=== PATIENT | male | born 1935 | race Two or more races ===

== ENCOUNTER 2020-02-26 20:23 | Inpatient (IN) | payer MEDICARE, MEDICAID ==
[~2020-02-26] VITALS: Ht 165.1 cm; Wt 83.9 kg
[2020-02-27] VITALS (15 sets, daily range): BP systolic 143–203; BP diastolic 57–95
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
[2020-02-27] MEDS ORDERED: ACETAMINOPHEN325 M1 ORAL (02:37)
[2020-02-27] MEDS ORDERED: ATORVASTATIN CA80 MG ORAL (02:37)
[2020-02-27] MEDS ORDERED: MONTELUKAST SOD10 MG ORAL (02:37)
[2020-02-27] MEDS ORDERED: METFORMIN HCL1000 M1 ORAL (02:37)
[2020-02-27] MEDS ORDERED: LYRICA75 M1 ORAL (02:37)
[2020-02-27] MEDS ORDERED: LEVOCETIRIZINE D5 MG ORAL (02:37)
[2020-02-27] MEDS ORDERED: VITAMIN D3-ALO1 EACH PO (02:37)
[2020-02-27] MEDS ORDERED: Jardiance PO (02:37)
[2020-02-27] MEDS ORDERED: NAPROXEN500 M2 ORAL (02:37)
[2020-02-27] MEDS ORDERED: VASCEPA1 GM PO (02:37)
[2020-02-27] MEDS ORDERED: CARVEDILOL12.5 MG ORAL (02:37)
[2020-02-27] MEDS ORDERED: FLOMAX0.4 MG ORAL (02:37)
--- NOTE | 2020-02-27 02:46 | NUR ---
NURSE NOTES: Called Dr. Bojorquez for admission orders. Awaiting callback.
--- NOTE | 2020-02-27 04:07 | NUR ---
NURSE NOTES: Called Dr. Bojorquez again for admission orders. Awaiting callback.
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
--- NOTE | 2020-02-27 06:36 | NUR ---
NURSE NOTES: Received admission orders from Dr. Bojorquez regarding keeping patient NPO for surgery later today after light breakfast. Noted and carried out.
[2020-02-27] MEDS ORDERED: Morphine Sulfate 2mg/ml Inj(IV/IM USE ONLY) IVP PRN ×9 (06:45→20:30)
[2020-02-27] MEDS ORDERED: HYDROcodone/Acetamin 5/325 tab ORAL PRN ×5 (06:45→18:45)
--- NOTE | 2020-02-27 07:44 | NUR ---
HAND-OFF: Report given to SWAPNIL Costa. Patient is awake lying semi-rahman's; resting comfortaby. Endorsed to oncoming shift RN regarding patient's possible surgical procedure later today; verbalized understanding. Per Dr. Bojorquez, Dr. Padilla will be putting in surgical procedure orders. In stable condition.
--- NOTE | 2020-02-27 07:54 | NUR ---
NURSE NOTES: Received pt from Miri/Ivelisse RN. Pt is on RA, no SOB or acute respiratory distress noted. pt has intact iv access LAC 18g and LH 22g SL. pt is on continues heart monitoring. no complain of pain at this moment. all needs attended, bed is locked and is in the lowest position, call light within easy reach. will continue to monitor.
--- NOTE | 2020-02-27 08:34 | NUR ---
RADIOLOGY DEPT., CHEST X-RAY DONE BY LILLIAN ERICKSON.RADHA
--- NOTE | 2020-02-27 08:45 | NUR ---
NURSE NOTES: Dr Bojorquez is aware about HTN 169/70 HR 75 and pt has surgery in the afternoon, ordered given metoprolol as order and gave order clonidine, noted and carried out. will continue to monitor.
[2020-02-27] MEDS ORDERED: Lyrica 75mg cap ORAL SCH ×2 (09:00→18:00)
[2020-02-27] MEDS ORDERED: Tamsulosin 0.4mg cap ORAL SCH ×2 (09:00→21:00)
[2020-02-27] MEDS ORDERED: Carvedilol 12.5mg tab ORAL SCH (09:00)
--- NOTE | 2020-02-27 09:20 | NUR ---
PT NOTE Received MD order for PT evaluation after surgery. Patient scheduled for surgery later today, will follow.
[2020-02-27 09:28] LABS: BASOPHILS % (AUTO) 0.4 % (0.0-2.0); EOSINOPHILS % (AUTO) 1.2 % (0.0-3.0); HEMATOCRIT 30.2 % (42.0-52.0); HEMOGLOBIN 9.8 G/DL (14.2-18.0); LYMPHOCYTES % (AUTO) 8.8 % (20.0-45.0); MEAN CORPUSCULAR VOLUME 95 FL (80-99); MONOCYTES % (AUTO) 9.8 % (1.0-10.0); NEUTROPHILS % (AUTO) 79.9 % (45.0-75.0); PLATELET COUNT 271 K/UL (150-450); RED BLOOD COUNT 3.17 M/UL (4.70-6.10); RED CELL DISTRIBUTION WIDTH 13.2 % (11.6-14.8); WHITE BLOOD COUNT 16.4 K/UL (4.8-10.8)
--- NOTE | 2020-02-27 09:28 | Diagnostic Imaging Report ---
Indication: Cough Technique: One view of the chest Comparison: none Findings: Heart is enlarged. Lungs and pleural spaces are clear. There is calcified granuloma in the right upper lobe. Impression: No acute process Evidence of old granulomatous disease
[2020-02-27 09:31] LABS: INR 1.1 (0.9-1.1)
[2020-02-27 09:39] LABS: ANION GAP 14 mmol/L (5-15); BLOOD UREA NITROGEN 48 mg/dL (7-18); CALCIUM 8.5 MG/DL (8.5-10.1); CARBON DIOXIDE 22 MMOL/L (21-32); CHLORIDE 105 MMOL/L (98-107); CREATININE 2.3 MG/DL (0.55-1.30); POTASSIUM 4.3 MMOL/L (3.5-5.1); SODIUM 141 MMOL/L (136-145)
[2020-02-27 09:48] LABS: ALANINE AMINOTRANSFERASE 17 U/L (12-78); ALBUMIN 2.8 G/DL (3.4-5.0); ALBUMIN/GLOBULIN RATIO 0.7 (1.0-2.7); ALKALINE PHOSPHATASE 79 U/L (46-116); ASPARTATE AMINO TRANSFERASE 21 U/L (15-37); PHOSPHORUS 3.7 MG/DL (2.5-4.9)
[2020-02-27] MEDS ORDERED: Vancomycin 1 GM in D5W 275 ML IVPB SCH ×2 (10:00→21:00)
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
--- NOTE | 2020-02-27 10:39 | NUR ---
NURSE NOTES: Dr Ngo visited pt and is aware about WBC 16.4, HB 9.8, CREA 2.3 BS 229, MG 2.5 and other lab results and V/S, no new order to RNMD will F/U. will continue to monitor.
--- NOTE | 2020-02-27 10:49 | NUR ---
NURSE NOTES: RN tried to do ECG for pt but ECG machine isn't working, CN Willam is aware and CN tried but couldn't, CN will F/U to fix machine. will continue to monitor.
--- NOTE | 2020-02-27 11:23 | NUR ---
NURSE NOTES: Urin sample sent to lab, waiting for result.
[2020-02-27] MEDS: NovoLOG Insulin Flexpen SUBQ SCH ×3 (11:30→20:40)
[2020-02-27 11:54] LABS: % IRON SATURATION 9 % (15-50); FERRITIN 236 NG/ML (8-388); IRON 14 ug/dL (50-175); TOTAL IRON BINDING CAPACITY 162 ug/dL (250-450)
[2020-02-27] MEDS ORDERED: ceFAZolin sod 1 GM in D5W 55 ML IVPB SCH (12:00)
[2020-02-27 12:05] LABS: CHOLESTEROL 101 MG/DL (< 200); HDL CHOLESTEROL 25 MG/DL (40-60); TRIGLYCERIDES 202 MG/DL (30-150)
[2020-02-27 12:06] LABS: APPEARANCE,URINE CLEAR; BILIRUBIN, URINE NEGATIVE (NEGATIVE); COLOR,URINE PALE YELLOW; GLUCOSE, URINE (UA) 4+ (NEGATIVE); KETONES,URINE 2+ (NEGATIVE); LEUKOCYTE ESTERASE ,URINE NEGATIVE (NEGATIVE); NITRITE,URINE NEGATIVE (NEGATIVE); PH,URINE 5 (4.5-8.0); PROTEIN,URINE 2+ (NEGATIVE); UROBILINOGEN,URINE NORMAL MG/DL (0.0-1.0)
--- NOTE | 2020-02-27 12:20 | NUR ---
CASE MANAGEMENT:REVIEW 84 YR OLD MALE BIBA FROM [facility] ER SI: POSTOP KNEE PAIN. DM. BPH 99.2 75 20 146/57 97% ON RA WBC+16.4 H/H-9.8/30.2 BUN+48 CR+2.3 GLUCOSE+229 IS: IV VANCOMYCIN X1 IV ANCEF Q12HRS COREG PO Q12 LYRICA PO BID FLOMAX PO QHS SINGULAR PO QD HEPARIN SQ Q8HRS : TELEMETRY STATUS
--- NOTE | 2020-02-27 12:28 | NUR ---
NURSE NOTES: RN called Dr Padilla office 0900 and left massage regarding pt is NPO and asked the time for surgery, no called back yet, GUERA Quarles is aware. will continue to monitor.
--- NOTE | 2020-02-27 12:31 | NUR ---
MD NOTIFICATION MESSAGES LEFT FOR DR SALES, DR SERRANO AND DR ORTIZ REGARDING HOSPITALIZATION
[2020-02-27 12:33] LABS: CREATINE KINASE 543 U/L (26-140)
--- NOTE | 2020-02-27 12:38 | NUR ---
NURSE NOTES: ECG done and sent to Dr Bojorquez, waiting for any order, will continue to monitor.
--- NOTE | 2020-02-27 13:03 | NUR ---
NURSE NOTES: Dr Bojorquez called back regarding ECG, stated it is ok, no new order to RN. Will continue to monitor.
--- NOTE | 2020-02-27 13:29 | Diagnostic Imaging Report ---
Indication: Abnormal renal function tests Technique: Grayscale and duplex images of the kidneys, retroperitoneum, and bladder were obtained. Comparison: none Findings: Right kidney measures 11.3 cm in length. Left kidney measures 10.1 cm in length. Both kidneys demonstrate normal echogenicity. No hydronephrosis. The left kidney demonstrates cysts. The right kidney demonstrates a 6 mm renal sinus calcification. The left kidney demonstrates an 8 mm lower pole sinus calcification. Normal inferior vena cava. Bladder is empty, contains a Sosa catheter. Impression: Bilateral nonobstructive intrarenal calculi Negative for hydronephrosis Left renal cysts Note bladder with a Sosa catheter.
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
[2020-02-27] MEDS ORDERED: Heparin 5000 units/ml inj SUBQ SCH (14:00)
--- NOTE | 2020-02-27 14:13 | NUR ---
NURSE NOTES: pt signed consent form for incision and drainage.
[2020-02-27] MEDS ORDERED: LR 1000ml 1,000 ML IVLG SCH ×2 (15:03→18:15)
--- NOTE | 2020-02-27 15:06 | Anethesia Preoperative Eval ---
Anesthesia Pre-op PMH/ROS General Date of Evaluation: Feb 27, 2020 Time of Evaluation: 15:09 Anesthesiologist: Franky ASA Score: ASA 3 Mallampati Score Class I : Soft palate, uvula, fauces, pillars visible Class II: Soft palate, uvula, fauces visible Class III: Soft palate, base of uvula visible Class IV: Only hard plate visible Mallampati Classification: Class II Surgeon: Randy Diagnosis: R Knee Pain Surgical Procedure: R Total Knee Instrument Change Anesthesia History: none Family History: no anesthesia problems Allergies: Coded Allergies: No Known Allergies (Unverified , 02/27/20) Medications: see eMAR Patient NPO?: Yes Past Medical History Cardiovascular: Reports: HTN, other - HL Gastrointestinal/Genitourinary: Reports: CRI, other - BPH Neurologic/Psychiatric: Reports: CVA Endocrine: Reports: DM Hematology/Immune: Reports: anemia Other: obesity - BMI 32 PSxH Narrative: R Knee Sx Anesthesia Pre-op Phys. Exam Physician Exam Last Vital Signs Date Time Temp Pulse Resp B/P (MAP) Pulse Ox O2 Delivery O2 Flow Rate FiO2 02/27/20 12:00 99.5 82 18 159/66 (97) 94 02/27/20 09:00 Room Air Constitutional: NAD Neurologic: CN 2-12 intact Cardiovascular: RRR Respiratory: CTA Gastrointestinal: S/NT/ND Airway Exam Mallampati Score: Class II MO: full ROM: limited Teeth: missing, intact Anesthesia Pre-op A/P Labs Hematology Test 02/27/20 09:05 White Blood Count 16.4 K/UL (4.8-10.8) H Red Blood Count 3.17 M/UL (4.70-6.10) L Hemoglobin 9.8 G/DL (14.2-18.0) L Hematocrit 30.2 % (42.0-52.0) L Mean Corpuscular Volume 95 FL (80-99) Mean Corpuscular Hemoglobin 30.9 PG (27.0-31.0) Mean Corpuscular Hemoglobin Concent 32.4 G/DL (32.0-36.0) Red Cell Distribution Width 13.2 % (11.6-14.8) Platelet Count 271 K/UL (150-450) Mean Platelet Volume 7.1 FL (6.5-10.1) Neutrophils (%) (Auto) 79.9 % (45.0-75.0) H Lymphocytes (%) (Auto) 8.8 % (20.0-45.0) L Monocytes (%) (Auto) 9.8 % (1.0-10.0) Eosinophils (%) (Auto) 1.2 % (0.0-3.0) Basophils (%) (Auto) 0.4 % (0.0-2.0) Coagulation Test 02/27/20 09:05 Prothrombin Time 12.4 SEC (9.30-11.50) H Prothromb Time International Ratio 1.1 (0.9-1.1) Activated Partial Thromboplast Time 28 SEC (23-33) Chemistry Test 02/27/20 09:05 02/27/20 12:00 02/27/20 12:01 Sodium Level 141 MMOL/L (136-145) Potassium Level 4.3 MMOL/L (3.5-5.1) Chloride Level 105 MMOL/L (98-107) Carbon Dioxide Level 22 MMOL/L (21-32) Anion Gap 14 mmol/L (5-15) Blood Urea Nitrogen 48 mg/dL (7-18) H Creatinine 2.3 MG/DL (0.55-1.30) H Estimat Glomerular Filtration Rate 27.3 mL/min (>60) Glucose Level 229 MG/DL (74-106) H Hemoglobin A1c 8.6 % (4.3-6.0) H Uric Acid 5.7 MG/DL (2.6-7.2) Calcium Level 8.5 MG/DL (8.5-10.1) Phosphorus Level 3.7 MG/DL (2.5-4.9) Magnesium Level 2.5 MG/DL (1.8-2.4) H Iron Level 14 ug/dL (50-175) L Total Iron Binding Capacity 162 ug/dL (250-450) L Percent Iron Saturation 9 % (15-50) L Unsaturated Iron Binding 148 ug/dL (112-346) Ferritin 236 NG/ML (8-388) Total Bilirubin 1.0 MG/DL (0.2-1.0) Gamma Glutamyl Transpeptidase 66 U/L (5-85) Aspartate Amino Transf (AST/SGOT) 21 U/L (15-37) Alanine Aminotransferase (ALT/SGPT) 17 U/L (12-78) Alkaline Phosphatase 79 U/L (46-116) Total Creatine Kinase 543 U/L (26-140) H Total Protein 6.7 G/DL (6.4-8.2) Albumin 2.8 G/DL (3.4-5.0) L Globulin 3.9 g/dL Albumin/Globulin Ratio 0.7 (1.0-2.7) L Triglycerides Level 202 MG/DL (30-150) H Cholesterol Level 101 MG/DL (< 200) LDL Cholesterol 38 mg/dL (<100) HDL Cholesterol 25 MG/DL (40-60) L Cholesterol/HDL Ratio 4.0 (3.3-4.4) Vitamin B12 Level 924 PG/ML (193-986) Folate 24.8 NG/ML (8.6-58.9) POC Whole Blood Glucose 306 MG/DL (74-106) H 304 MG/DL (74-106) H Risk Assessment & Plan Assessment: ASA 3 Plan: Spinal With GA Status Change Before Surgery: No Pre-Antibiotics Drug: Paul Dahl MD Feb 27, 2020 15:06
[2020-02-27] MEDS ORDERED: Meperidine 25mg/0.5ml Inj (FOR RIGORS ONLY) IV PRN ×2 (15:15→18:00)
[2020-02-27] MEDS ORDERED: Hydromorphone 0.5mg/0.5ml inj IVP PRN ×3 (15:15→18:15)
[2020-02-27] MEDS ORDERED: Metoclopramide 10mg/2ml Inj IVP PRN ×3 (15:15→18:15)
[2020-02-27] MEDS ORDERED: oxyCODONE HCL/Acetaminophen 5/325mg ORAL PRN ×3 (15:15→18:15)
[2020-02-27] MEDS ORDERED: fentaNYL 100 mcg/2 mL IV PRN ×3 (15:15→18:15)
[2020-02-27] MEDS ORDERED: Atropine Sulfate 0.4mg/ml inj IVP PRN ×3 (15:15→18:15)
[2020-02-27] MEDS ORDERED: LORazepam Inj 2mg/ml 1ml IV PRN ×3 (15:15→18:15)
[2020-02-27] MEDS ORDERED: DiphenhydrAMINE 50mg/ml Inj IVP PRN ×3 (15:15→18:15)
[2020-02-27] MEDS ORDERED: Midazolam 2mg/2ml Inj IVP PRN ×3 (15:15→18:15)
[2020-02-27] MEDS ORDERED: HYDROcodone/Acetamin 7.5/325 tab ORAL PRN ×3 (15:15→18:15)
--- NOTE | 2020-02-27 15:20 | Immediate Post-Op Evaluation ---
Immediate Post-Op Evalulation Immediate Post-Op Evalulation Procedure: R Knee Instrument Change Date of Evaluation: Feb 27, 2020 Time of Evaluation: 18:04 IV Fluids: 200 NS Blood Products: 0 Estimated Blood Loss: 30 Urinary Output: 0 Blood Pressure Systolic: 203 Blood Pressure Diastolic: 94 Pulse Rate: 76 Respiratory Rate: 16 O2 Sat by Pulse Oximetry: 100 Temperature (Fahrenheit): 98.7 Pain Score (1-10): 1 Nausea: No Vomiting: No Complications 0 Patient Status: awake, reacts, patent, none Hydration Status: adequate Dru Grams Ancef IV Given Within 1 Hr of Incision: Yes Time Given: 16:36 Paul Wilkins MD Feb 27, 2020 15:20
[2020-02-27] MEDS ORDERED: Sterile Water Irrig 1000ml IRRIG ONE (16:00)
[2020-02-27] MEDS ORDERED: Montelukast 10mg tablet ORAL SCH (16:00)
[2020-02-27] MEDS ORDERED: EPINEPHrine 1mg/1ml Amp ONE (16:04)
[2020-02-27] MEDS ORDERED: Bupivacaine 0.5% Inj 30 ml vial INJ ONE (16:04)
[2020-02-27] MEDS ORDERED: cloNIDine 1000mcg/10ml inj ONE (16:04)
[2020-02-27] MEDS ORDERED: Midazolam 2mg/2ml Inj ONE (16:14)
[2020-02-27] MEDS ORDERED: Lidocaine 1% Plain 30 ml INJ ONE (16:14)
[2020-02-27] MEDS ORDERED: Ketamine 500mg/10ml vial ONE (16:14)
--- NOTE | 2020-02-27 16:17 | NUR ---
NURSE NOTES: Pt is awake and alert and orient x4 and stable, V/S stable, POWER LINEWORKER is aware about metoprolol and clonidine at 0900, iv access flushed, pt left unit to OR.
[2020-02-27] MEDS ORDERED: Lidocaine 1% MPF 10mg/ml 5ml ONE (16:27)
[2020-02-27] MEDS ORDERED: Sodium Chloride 10ml vial INJ ONE (16:27)
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
[2020-02-27] MEDS ORDERED: Milk of Magnesia 30ml Ud ORAL PRN ×2 (16:30→21:00)
[2020-02-27] MEDS ORDERED: oxyCODONE 5mg IR tab ORAL PRN ×4 (16:30→20:15)
[2020-02-27] MEDS ORDERED: NS Irrig 2000ml IRRIG ONE ×6 (16:38→17:10)
[2020-02-27] MEDS ORDERED: Vancomycin 1gm vial IVPB ONE (16:52)
--- NOTE | 2020-02-27 16:53 | History & Physical ---
History and Physical History & Physicial Dictated for Int Med-DR Bojorquez no. [id number]. Real Moeller MD Feb 27, 2020 16:52
[2020-02-27] MEDS ORDERED: NeoSporin Gu Irrig 1ml Amp IRRIG ONE (16:58)
[2020-02-27] MEDS ORDERED: Bacitracin 50000 Units Vial ONE (16:58)
[2020-02-27] MEDS ORDERED: fentaNYL 100 mcg/2 mL IV ONE (17:10)
[2020-02-27] MEDS ORDERED: Acetaminophen 500mg (ES) tab ORAL SCH (18:00)
[2020-02-27] MEDS ORDERED: D5 1/2NS w/KCl 20mEq 1,000 ML IV SCH (18:00)
[2020-02-27] MEDS ORDERED: Docusate 100mg cap ORAL SCH ×3 (18:00)
[2020-02-27] MEDS ORDERED: Aspirin Baby 81mg ORAL SCH (18:00)
[2020-02-27] MEDS ORDERED: Meperidine 25mg/0.5ml Inj (FOR RIGORS ONLY) ONE (18:10)
[2020-02-27] MEDS: Meperidine 25mg/0.5ml Inj (FOR RIGORS ONLY) IV PRN ×2 (18:15→18:44)
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
--- NOTE | 2020-02-27 18:25 | NUR ---
NURSE NOTES: Report received from Igor RN (tele), patient is in OR at this time. All belongings reviewed and signed with Igor. Will endorse to executive administrative asst and review with patient.
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
--- NOTE | 2020-02-27 18:38 | NUR ---
NURSE NOTES: Pt will go to 311 after surgery, report given to SWAPNIL Walls, all belongings sent to [address] and checked with SWAPNIL Walls, pt has 120$ and cellphone and clothes and 2 set of keys, GUERA Carlos is aware about 120$. Endorsed to monitor BS, Endorsed plan of care. asked Kavita when pt is in 3E call tele to picker feeder tele box, verbally confirmed.
--- NOTE | 2020-02-27 19:28 | NUR ---
HAND-OFF: Report given to Livan RN, rounds made, patient stable. Belongngs reviewed with patient and Livan (signed by patient)
--- NOTE | 2020-02-27 19:29 | NUR ---
NURSE NOTES: Received report from Sanjana An RN. Rounding is done. Patient is a/o x4 and c/o pain 9/10. Will give medication as ordered. No distress noted at this time. Checked Neuro and circulation and intact at this time. Surgical dressing on Rt knee is c/d/i. No bleeding is noted. IV site is intact and patent. Sosa is in place and draining to gravity. Bed is on alarm, locked, and lowest position. Call light within reach. Will continue to monitor.
[2020-02-27] MEDS: Carvedilol 12.5mg tab ORAL SCH (20:42)
[2020-02-27] MEDS: oxyCONTIN 20mg tab ORAL SCH (20:42)
[2020-02-27] MEDS: Atorvastatin 80mg tab ORAL SCH (20:42)
[2020-02-27] MEDS: Morphine Sulfate 2mg/ml Inj(IV/IM USE ONLY) IVP PRN (20:43)
[2020-02-27] MEDS ORDERED: Vancomycin 1 GM in D5W 275 ML IV SCH (21:00)
[2020-02-27] MEDS ORDERED: oxyCONTIN 20mg tab ORAL SCH (21:00)
[2020-02-27] MEDS ORDERED: Atorvastatin 80mg tab ORAL SCH (21:00)
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
[2020-02-27] MEDS: D5 1/2NS w/KCl 20mEq 1,000 ML IV SCH (21:38)
[2020-02-27] MEDS: Acetaminophen 500mg (ES) tab ORAL SCH (21:39)
[2020-02-28] VITALS: BP 120/87
[2020-02-28 04:00] VITALS: BP 137/64
[2020-02-28 05:53] LABS: BASOPHILS % (AUTO) 0.5 % (0.0-2.0); EOSINOPHILS % (AUTO) 2.5 % (0.0-3.0); HEMATOCRIT 29.9 % (42.0-52.0); HEMOGLOBIN 9.5 G/DL (14.2-18.0); LYMPHOCYTES % (AUTO) 15.4 % (20.0-45.0); MEAN CORPUSCULAR VOLUME 97 FL (80-99); MONOCYTES % (AUTO) 9.8 % (1.0-10.0); NEUTROPHILS % (AUTO) 71.9 % (45.0-75.0); PLATELET COUNT 263 K/UL (150-450); RED BLOOD COUNT 3.08 M/UL (4.70-6.10); RED CELL DISTRIBUTION WIDTH 13.2 % (11.6-14.8); WHITE BLOOD COUNT 13.1 K/UL (4.8-10.8)
[2020-02-28] MEDS: Acetaminophen 500mg (ES) tab ORAL SCH ×3 (06:06→22:24)
[2020-02-28] MEDS: Heparin 5000 units/ml inj SUBQ SCH ×3 (06:07→22:25)
[2020-02-28] MEDS: NovoLOG Insulin Flexpen SUBQ SCH ×4 (06:08→20:57)
[2020-02-28 06:15] LABS: ALANINE AMINOTRANSFERASE 14 U/L (12-78); ALBUMIN 2.8 G/DL (3.4-5.0); ALBUMIN/GLOBULIN RATIO 0.7 (1.0-2.7); ALKALINE PHOSPHATASE 88 U/L (46-116); ANION GAP 10 mmol/L (5-15); ASPARTATE AMINO TRANSFERASE 17 U/L (15-37); BILIRUBIN,TOTAL 0.7 MG/DL (0.2-1.0); BLOOD UREA NITROGEN 46 mg/dL (7-18); CALCIUM 8.3 MG/DL (8.5-10.1); CARBON DIOXIDE 24 MMOL/L (21-32); CHLORIDE 104 MMOL/L (98-107); CREATININE 2.2 MG/DL (0.55-1.30); PHOSPHORUS 4.9 MG/DL (2.5-4.9); POTASSIUM 4.7 MMOL/L (3.5-5.1); SODIUM 137 MMOL/L (136-145)
--- NOTE | 2020-02-28 06:36 | NUR ---
NURSE NOTES: Patient had small amount of hematuria with daley. Urine output 900 ml (During the shift), Hgb 9.5, Hct 29.9. Called to Dr. Bojorquez regarding patient's condition and his diet .
--- NOTE | 2020-02-28 07:05 | NUR ---
NURSE NOTES: Report received from Livan RN, rounds made. Patient AOx4, calm, Salvadorean/Slovak speaking. Respirations even/unlabored on O2 3LNC, no distress/SOB. On CCHO med diet, appetite good, no NV. Pain to RLE, will medicate and reapply ice pack. FC draining yellow urine to gravity. Neuro checks done, CMS+, wiggles, skin warm, pulses palpable, +1 pitting edema to RLE, LLE SCD on, hand grasps/pedal pushes equal/strong 4/5. Encouraged IS, ankle rotation. IV infusing to LAC, LH heplock intact, IV sites asymptomatic. Call light in reach, bed in lowest position, will continue to monitor.
--- NOTE | 2020-02-28 07:11 | NUR ---
HAND-OFF: Report given to Kavita KRAFT. Patient in stable condition.
[2020-02-28 08:00] VITALS: BP 131/72
[2020-02-28] MEDS ORDERED: celeBREX 200mg Cap **SURGERY PATIENTS ONLY ORAL SCH ×2 (09:00)
[2020-02-28] MEDS ORDERED: metFORMIN 500mg tab ORAL SCH (09:00)
[2020-02-28] MEDS ORDERED: Tamsulosin 0.4mg cap ORAL SCH (09:00)
[2020-02-28] MEDS: Tamsulosin 0.4mg cap ORAL SCH ×2 (10:10→17:18)
[2020-02-28] MEDS: Aspirin Baby 81mg ORAL SCH ×2 (10:11→20:48)
[2020-02-28] MEDS: Docusate 100mg cap ORAL SCH ×3 (10:11→17:18)
[2020-02-28] MEDS: Carvedilol 12.5mg tab ORAL SCH ×2 (10:12→20:52)
[2020-02-28] MEDS: oxyCONTIN 20mg tab ORAL SCH ×2 (10:13→20:49)
[2020-02-28] MEDS: D5 1/2NS w/KCl 20mEq 1,000 ML IV SCH (10:20)
--- NOTE | 2020-02-28 10:22 | Nephrology Progress Note ---
Assessment/Plan Problem List: (1) Renal failure (ARF), acute on chronic (2) Diabetes mellitus (3) BPH (benign prostatic hyperplasia) (4) History of asthma (5) HTN (hypertension) Assessment Acute on chronic renal failure Diabetes mellitus [id number] History of asthma BPH Postoperative right knee pain Anemia Hypertension Plan February 27: Patient had orthopedic procedure on her right knee yesterday. Renal parameters appears to be stable. Continue to monitor blood pressure and blood sugar. Kidney ultrasound results reviewed. 1 dose of Venofer for low iron given. Continue to avoid nephrotoxic's. Sosa catheter One half normal saline 75 cc an hour Keep blood sugar in check Anemia work-up 2D echocardiogram Hold metformin Pain medication Avoid nephrotoxic's Monitor renal parameters Subjective ROS Limited/Unobtainable: No Constitutional: Reports: malaise, weakness Objective Objective Last 24 Hour Vital Signs Date Time Temp Pulse Resp B/P (MAP) Pulse Ox O2 Delivery O2 Flow Rate FiO2 02/28/20 10:12 76 131/72 02/28/20 08:00 98.0 76 19 131/72 (91) 02/28/20 04:00 97.5 64 18 137/64 (88) 99 02/28/20 00:00 97.7 67 18 120/87 (98) 99 02/27/20 21:00 Room Air 02/27/20 20:42 82 162/70 02/27/20 20:00 98.1 82 18 162/70 (100) 99 02/27/20 19:15 97.7 75 16 164/69 100 Nasal Cannula 3 02/27/20 19:14 97.7 02/27/20 19:00 76 20 174/77 100 Nasal Cannula 3 02/27/20 18:45 78 19 177/95 100 Nasal Cannula 3 02/27/20 18:32 97.7 02/27/20 18:30 75 19 188/80 100 Nasal Cannula 3 02/27/20 18:21 200/94 02/27/20 18:20 74 19 200/94 100 Simple Mask 6 02/27/20 18:10 75 20 198/85 100 Simple Mask 6 02/27/20 18:00 74 21 187/88 100 Simple Mask 6 02/27/20 17:55 73 23 198/93 100 Simple Mask 6 02/27/20 17:50 98.7 75 25 203/94 100 Simple Mask 6 02/27/20 17:50 76 16 100 02/27/20 16:13 71 02/27/20 15:59 97.0 72 20 155/69 (97) 96 02/27/20 12:00 99.5 82 18 159/66 (97) 94 02/27/20 11:45 81 Intake and Output 02/27/20 02/28/20 19:00 07:00 Intake Total 605.000 ml 2005.0 ml Output Total 30 ml 1250 ml Balance 575.000 ml 755.0 ml Intake Oral 800 ml IV Total 605.000 ml 1205.0 ml Output Urine Total 1250 ml Estimated Blood Loss 30 ml Current Medications Medications (Trade) Dose Ordered Sig/Tiffany Route PRN Reason Start Time Stop Time Status Last Admin Dose Admin Acetaminophen (Tylenol) 1,000 mg Q8HR ORAL 02/27/20 22:00 03/28/20 21:59 02/28/20 13:23 Aspirin (ASA) 81 mg Q12HR ORAL 02/28/20 09:00 04/13/20 08:59 02/28/20 10:11 Atorvastatin Calcium (Lipitor) 80 mg BEDTIME ORAL 02/27/20 21:00 05/27/20 20:59 02/27/20 20:42 Carvedilol (Coreg) 12.5 mg EVERY 12 HOURS ORAL 02/27/20 21:00 03/28/20 08:59 02/28/20 10:12 Cefazolin Sodium 1 gm/Dextrose 55 ml @ 110 mls/hr Q12H IVPB 02/28/20 00:00 03/05/20 11:59 02/28/20 12:00 Chlorhexidine Gluconate (Nan-Hex 2%) 1 applic DAILY@2000 TOPIC 02/28/20 20:00 05/28/20 19:59 Clonidine HCl (Catapres Tab) 0.1 mg Q4H PRN ORAL SBP > 160mmHg 02/27/20 20:45 05/27/20 08:44 Dextrose (Dextrose 50%) 25 ml Q30M PRN IV Hypoglycemia 02/27/20 18:15 05/27/20 06:44 Dextrose (Dextrose 50%) 50 ml Q30M PRN IV Hypoglycemia 02/27/20 20:00 05/27/20 19:59 Dextrose/ Electrolytes 1,000 ml @ 75 mls/hr [id number] IV 02/27/20 21:00 03/28/20 20:59 02/27/20 21:38 Diphenhydramine HCl (Benadryl) 25 mg Q8H PRN IVP Itching 02/28/20 12:30 03/29/20 12:29 02/28/20 13:23 Docusate Sodium (Colace) 100 mg THREE TIMES A DAY ORAL 02/28/20 09:00 03/29/20 08:59 02/28/20 13:25 Gabapentin (Neurontin) 100 mg Q8HR ORAL 02/27/20 22:00 03/28/20 21:59 02/28/20 13:23 Heparin Sodium (Porcine) (Heparin 5000 units/ml) 5,000 units EVERY 8 HOURS SUBQ 02/28/20 06:00 04/13/20 05:59 02/28/20 13:21 Heparin Sodium/ Sodium Chloride (Heparin 1000 units/500ml Premix) 1,000 unit ONCE PRN IV PICC 02/28/20 14:45 02/28/20 23:59 Insulin Aspart (NovoLOG) BEFORE MEALS AND HS SUBQ 02/27/20 21:00 05/27/20 11:29 02/28/20 12:00 Lidocaine HCl (Xylocaine 1% 30ml) 30 ml ONCE PRN INJ PICC 02/28/20 14:45 02/28/20 23:59 Magnesium Hydroxide (Mom) 30 ml DAILYPRN PRN ORAL Constipation 02/27/20 21:00 03/28/20 20:59 Montelukast Sodium (Singulair) 10 mg DAILY@1600 ORAL 02/28/20 16:00 05/27/20 15:59 Morphine Sulfate (Morphine Sulfate) 1 mg Q4H PRN IVP Moderate Breakthru Pain (5-7) 02/27/20 20:30 03/05/20 16:29 Morphine Sulfate (Morphine Sulfate) 2 mg Q4H PRN IVP Severe Breakthru Pain (>7) 02/27/20 20:15 03/05/20 10:29 02/28/20 12:02 Ondansetron HCl (Zofran) 4 mg Q6H PRN IVP Nausea & Vomiting 7/23/20 20:00 03/28/20 19:59 Oxycodone HCl (OxyCONTIN) 20 mg EVERY 12 HOURS ORAL 02/27/20 21:00 03/05/20 20:59 02/28/20 10:13 Oxycodone HCl (Roxicodone) 5 mg Q1H PRN ORAL Mild breakthrough pain 2-4 02/27/20 20:15 03/05/20 16:29 Pantoprazole (Protonix) 40 mg Q12HR ORAL 02/27/20 21:00 03/28/20 13:44 02/28/20 10:10 Tamsulosin HCl (Flomax) 0.4 mg BID ORAL 02/28/20 09:00 03/28/20 20:59 02/28/20 10:10 Temazepam (RestoriL) 7.5 mg HSPRN PRN ORAL Insomnia 02/28/20 21:00 03/05/20 20:59 Laboratory Tests 02/27/20 11:20: Urine Color Pale yellow, Urine Appearance Clear, Urine pH 5, Urine Specific [place] 1.015, Urine Protein 2+H, Urine Glucose (UA) 4+H, Urine Ketones 2+H, Urine Blood 5+H, Urine Nitrite Negative, Urine Bilirubin Negative, Urine Urobilinogen Normal, Urine Leukocyte Esterase Negative, Urine RBC 20-30H, Urine WBC 2-4, Urine Squamous Epithelial Cells Occasional, Urine Amorphous Sediment FewH, Urine Bacteria Occasional, Urine Eosinophils None seen, Urine Osmolality 538H, Urine Random Creatinine [Pending], Urine Random Microalbumin [Pending], Urine Random Sodium 52, Urine Microalbumin/Creatinine Ratio [Pending] 02/27/20 12:00: POC Whole Blood Glucose 306H 02/27/20 12:01: POC Whole Blood Glucose 304H 02/27/20 20:39: POC Whole Blood Glucose 235H 02/28/20 04:50: White Blood Count 13.1H, Red Blood Count 3.08L, Hemoglobin 9.5L, Hematocrit 29.9L, Mean Corpuscular Volume 97, Mean Corpuscular Hemoglobin 30.8, Mean Corpuscular Hemoglobin Concent 31.8L, Red Cell Distribution Width 13.2, Platelet Count 263, Mean Platelet Volume 7.3, Neutrophils (%) (Auto) 71.9, Lymphocytes (%) (Auto) 15.4L, Monocytes (%) (Auto) 9.8, Eosinophils (%) (Auto) 2.5, Basophils (%) (Auto) 0.5, Erythrocyte Sedimentation Rate 121H, Sodium Level 137, Potassium Level 4.7, Chloride Level 104, Carbon Dioxide Level 24, Anion Gap 10, Blood Urea Nitrogen 46H, Creatinine 2.2H, Estimat Glomerular Filtration Rate 28.7, Glucose Level 245H, Calcium Level 8.3L, Phosphorus Level 4.9, Magnesium Level 2.5H, Total Bilirubin 0.7, Aspartate Amino Transf (AST/SGOT ) 17, Alanine Aminotransferase (ALT/SGPT) 14, Alkaline Phosphatase 88, Troponin I 0.000, C-Reactive Protein, Quantitative 30.0H, Total Protein 6.6, Albumin 2.8L , Globulin 3.8, Albumin/Globulin Ratio 0.7L, Thyroid Stimulating Hormone (TSH) 1.966 Height (Feet): 5 Height (Inches): 5.00 Weight (Pounds): 185 General Appearance: mild distress Cardiovascular: normal rate Respiratory/Chest: decreased breath sounds Abdomen: distended Genitourinary/Rectal: other - Ssoa in place Jer Messer MD Feb 28, 2020 10:22
--- NOTE | 2020-02-28 10:51 | NUR ---
CASE MANAGEMENT:REVIEW 02/28/20 SI: POD #1 S/P RT KNEE ARTHROTOMY,COMPLETE SYNOVECTOMY REVISION OF RT TIBIAL INSERT. I & D 98.0 76 19 131/72 99% ON RA WBC+13.1 H/H-9.5/29.9 BUN+46 CR+2.2 IS: SINGULAR PO QD ASA PO Q12 COLACE PO TID FLOMAX PO BID HEPARIN SQ Q8HRS COREG PO Q12 IVF@75/HR OXYCONTIN PO Q12 IV MORPHINE Q4HRS PRN : MED[facility]
--- NOTE | 2020-02-28 11:47 | NUR ---
DISCHARGE PLANNING PATIENT LIVES ALONE AND IS INTERESTED IN REHAB UPON DISCHARGE WE NEED PHYSICAL THERAPY NOTES BEFORE WE CAN REFER PATIENT TO ANY FACILITY
[2020-02-28 12:00] VITALS: BP 140/74
[2020-02-28] MEDS: ceFAZolin sod 1 GM in D5W 55 ML IVPB SCH ×3 (12:00)
[2020-02-28] MEDS: Morphine Sulfate 2mg/ml Inj(IV/IM USE ONLY) IVP PRN (12:02)
[2020-02-28] MEDS ORDERED: DiphenhydrAMINE 50mg/ml Inj IVP PRN (12:30)
--- NOTE | 2020-02-28 12:45 | Internal Med Progress Note ---
Subjective Date of Service: Feb 28, 2020 Physician Name SunniReal Attending Physician Vik Bojorquez MD Current Medications Medications (Trade) Dose Ordered Sig/Tiffany Route PRN Reason Start Time Stop Time Status Last Admin Dose Admin Acetaminophen (Tylenol) 1,000 mg Q8HR ORAL 02/27/20 22:00 03/28/20 21:59 02/28/20 06:06 Aspirin (ASA) 81 mg Q12HR ORAL 02/28/20 09:00 04/13/20 08:59 02/28/20 10:11 Atorvastatin Calcium (Lipitor) 80 mg BEDTIME ORAL 02/27/20 21:00 05/27/20 20:59 02/27/20 20:42 Carvedilol (Coreg) 12.5 mg EVERY 12 HOURS ORAL 02/27/20 21:00 03/28/20 08:59 02/28/20 10:12 Cefazolin Sodium 1 gm/Dextrose 55 ml @ 110 mls/hr Q12H IVPB 02/28/20 00:00 03/05/20 11:59 02/28/20 12:00 Clonidine HCl (Catapres Tab) 0.1 mg Q4H PRN ORAL SBP > 160mmHg 02/27/20 20:45 05/27/20 08:44 Dextrose (Dextrose 50%) 25 ml Q30M PRN IV Hypoglycemia 02/27/20 18:15 05/27/20 06:44 Dextrose (Dextrose 50%) 50 ml Q30M PRN IV Hypoglycemia 02/27/20 20:00 05/27/20 19:59 Dextrose/ Electrolytes 1,000 ml @ 75 mls/hr [id number] IV 02/27/20 21:00 03/28/20 20:59 02/27/20 21:38 Diphenhydramine HCl (Benadryl) 25 mg Q8H PRN IVP Itching 02/28/20 12:30 03/29/20 12:29 Docusate Sodium (Colace) 100 mg THREE TIMES A DAY ORAL 02/28/20 09:00 03/29/20 08:59 02/28/20 10:11 Gabapentin (Neurontin) 100 mg Q8HR ORAL 02/27/20 22:00 03/28/20 21:59 02/28/20 06:06 Heparin Sodium (Porcine) (Heparin 5000 units/ml) 5,000 units EVERY 8 HOURS SUBQ 02/28/20 06:00 04/13/20 05:59 02/28/20 06:07 Insulin Aspart (NovoLOG) BEFORE MEALS AND HS SUBQ 02/27/20 21:00 05/27/20 11:29 02/28/20 12:00 Magnesium Hydroxide (Mom) 30 ml DAILYPRN PRN ORAL Constipation 02/27/20 21:00 03/28/20 20:59 Montelukast Sodium (Singulair) 10 mg DAILY@1600 ORAL 02/28/20 16:00 05/27/20 15:59 Morphine Sulfate (Morphine Sulfate) 1 mg Q4H PRN IVP Moderate Breakthru Pain (5-7) 02/27/20 20:30 03/05/20 16:29 Morphine Sulfate (Morphine Sulfate) 2 mg Q4H PRN IVP Severe Breakthru Pain (>7) 02/27/20 20:15 03/05/20 10:29 02/28/20 12:02 Ondansetron HCl (Zofran) 4 mg Q6H PRN IVP Nausea & Vomiting 02/27/20 20:00 03/28/20 19:59 Oxycodone HCl (OxyCONTIN) 20 mg EVERY 12 HOURS ORAL 02/27/20 21:00 03/05/20 20:59 02/28/20 10:13 Oxycodone HCl (Roxicodone) 5 mg Q1H PRN ORAL Mild breakthrough pain 2-4 02/27/20 20:15 03/05/20 16:29 Pantoprazole (Protonix) 40 mg Q12HR ORAL 02/27/20 21:00 03/28/20 13:44 02/28/20 10:10 Tamsulosin HCl (Flomax) 0.4 mg BID ORAL 02/28/20 09:00 03/28/20 20:59 02/28/20 10:10 Temazepam (RestoriL) 7.5 mg HSPRN PRN ORAL Insomnia 02/28/20 21:00 03/05/20 20:59 Allergies: Coded Allergies: No Known Allergies (Unverified , 02/27/20) ROS Limited/Unobtainable: No Constitutional: Reports: no symptoms HEENT: Reports: no symptoms Cardiovascular: Reports: no symptoms Respiratory: Reports: no symptoms Gastrointestinal/Abdominal: Reports: no symptoms Genitourinary: Reports: no symptoms Neurologic/Psychiatric: Reports: no symptoms Subjective 84 YO M admitted with wound dehiscence right knee. S/P complex closure in OR . Cover for Int Med Dr Bojorquez Objective Last Vital Signs Date Time Temp Pulse Resp B/P (MAP) Pulse Ox O2 Delivery O2 Flow Rate FiO2 02/28/20 10:12 76 131/72 02/28/20 08:00 98.0 19 02/28/20 04:00 99 02/27/20 21:00 Room Air 02/27/20 19:15 3 Laboratory Tests Test 02/27/20 20:39 02/28/20 04:50 POC Whole Blood Glucose 235 MG/DL (74-106) H White Blood Count 13.1 K/UL (4.8-10.8) H Red Blood Count 3.08 M/UL (4.70-6.10) L Hemoglobin 9.5 G/DL (14.2-18.0) L Hematocrit 29.9 % (42.0-52.0) L Mean Corpuscular Volume 97 FL (80-99) Mean Corpuscular Hemoglobin 30.8 PG (27.0-31.0) Mean Corpuscular Hemoglobin Concent 31.8 G/DL (32.0-36.0) L Red Cell Distribution Width 13.2 % (11.6-14.8) Platelet Count 263 K/UL (150-450) Mean Platelet Volume 7.3 FL (6.5-10.1) Neutrophils (%) (Auto) 71.9 % (45.0-75.0) Lymphocytes (%) (Auto) 15.4 % (20.0-45.0) L Monocytes (%) (Auto) 9.8 % (1.0-10.0) Eosinophils (%) (Auto) 2.5 % (0.0-3.0) Basophils (%) (Auto) 0.5 % (0.0-2.0) Erythrocyte Sedimentation Rate 121 MM/HR (0-20) H Sodium Level 137 MMOL/L (136-145) Potassium Level 4.7 MMOL/L (3.5-5.1) Chloride Level 104 MMOL/L (98-107) Carbon Dioxide Level 24 MMOL/L (21-32) Anion Gap 10 mmol/L (5-15) Blood Urea Nitrogen 46 mg/dL (7-18) H Creatinine 2.2 MG/DL (0.55-1.30) H Estimat Glomerular Filtration Rate 28.7 mL/min (>60) Glucose Level 245 MG/DL (74-106) H Calcium Level 8.3 MG/DL (8.5-10.1) L Phosphorus Level 4.9 MG/DL (2.5-4.9) Magnesium Level 2.5 MG/DL (1.8-2.4) H Total Bilirubin 0.7 MG/DL (0.2-1.0) Aspartate Amino Transf (AST/SGOT) 17 U/L (15-37) Alanine Aminotransferase (ALT/SGPT) 14 U/L (12-78) Alkaline Phosphatase 88 U/L (46-116) Troponin I 0.000 ng/mL (0.000-0.056) C-Reactive Protein, Quantitative 30.0 mg/dL (0.00-0.90) H Total Protein 6.6 G/DL (6.4-8.2) Albumin 2.8 G/DL (3.4-5.0) L Globulin 3.8 g/dL Albumin/Globulin Ratio 0.7 (1.0-2.7) L Thyroid Stimulating Hormone (TSH) 1.966 uiU/mL (0.358-3.740) Microbiology Date/Time Source Procedure Growth Status 02/27/20 14:40 Nasopharynx SARS-CoV-2 RdRp Gene Assay - Final Complete 02/27/20 18:13 Knee Right Gram Stain - Final Resulted 02/27/20 18:13 Knee Right Aerobic Culture - Preliminary NO GROWTH Resulted 02/27/20 18:13 Knee Right Anaerobic Culture Pending Resulted 02/27/20 18:10 Knee Right Gram Stain - Final Resulted 02/27/20 18:10 Knee Right Aerobic Culture - Preliminary NO GROWTH Resulted 02/27/20 18:10 Knee Right Anaerobic Culture Pending Resulted Intake and Output 02/27/20 02/28/20 19:00 07:00 Intake Total 605.000 ml 2005.0 ml Output Total 30 ml 1250 ml Balance 575.000 ml 755.0 ml Intake Oral 800 ml IV Total 605.000 ml 1205.0 ml Output Urine Total 1250 ml Estimated Blood Loss 30 ml Objective PHYSICAL EXAMINATION: GENERAL: The patient is a well-developed and well-nourished male, in no apparent distress. HEENT: Eyes, pupils are equal and responsive to light and accommodation. Extraocular movements are intact. NECK: Supple without lymphadenopathy. CHEST: Lungs are clear to auscultation bilaterally without wheezes or rales. CARDIOVASCULAR: Regular rate. S1, S2 normal without murmurs, rubs, or gallops. ABDOMEN: Soft, nontender, and nondistended. Positive bowel sounds. No evidence of hepatosplenomegaly. Currently, no rebound or guarding noted. EXTREMITIES: Negative for clubbing, cyanosis, or edema. RECTAL/GENITAL: Not performed. NEUROLOGIC: Cranial nerves II through XII are grossly intact without focal deficits. Motor strength is 5/5 bilaterally. Deep tendon reflexes are 2+ plantar. Assessment/Plan Assessment/Plan ASSESSMENT: This is an 84-year-old male with: 1. Right knee pain. 2. Diabetes type 2. 3. Hypertension. 4. Asthma. 5. Benign prostatic hypertrophy. 6. Hypercholesteremia. 7. Cerebrovascular disease, status post cerebrovascular accident. 8. Wound dehiscence right knee surgery TREATMENT: 1. Right knee pain. An Orthopedic consultation has been obtained with Dr. Ananth Padilla. The patient is scheduled for right total knee replacement on 02/27/2020. Follow recommendation of Orthopedic Surgery. 2. Diabetes type 2. NovoLog sliding scale has been instituted. Discontinue metformin as the patient is NPO for surgery. 3. Cerebrovascular disease. The patient is status post cerebrovascular accident. 4. Asthma. Continue Singulair as above. Albuterol 2.5 mg nebulized q.4 hours p.r.n. wheezing. 5. Benign prostatic hypertrophy. Continue Flomax as above. 6. Hypertension. Continue Coreg as above. 7. Hypercholesterolemia. Continue atorvastatin as above. 8. S/P complex closure in OR on 02/27/20 Real Moeller MD Feb 28, 2020 12:45
--- NOTE | 2020-02-28 13:30 | NUR ---
NURSE NOTES: Patient complains of itching, Dr. Bojorquez notified, orders received for Benadryl PRN, see eMAR, administered as ordered, patient reports itching subsided.
--- NOTE | 2020-02-28 13:36 | Pulmonology Progress Note ---
Subjective ROS Limited/Unobtainable: No Allergies: Coded Allergies: No Known Allergies (Unverified , 02/27/20) Objective Last 24 Hour Vital Signs Date Time Temp Pulse Resp B/P (MAP) Pulse Ox O2 Delivery O2 Flow Rate FiO2 02/28/20 12:00 98.7 96 21 140/74 (96) 95 02/28/20 10:12 76 131/72 02/28/20 08:00 98.0 76 19 131/72 (91) 02/28/20 04:00 97.5 64 18 137/64 (88) 99 02/28/20 00:00 97.7 67 18 120/87 (98) 99 02/27/20 21:00 Room Air 02/27/20 20:42 82 162/70 02/27/20 20:00 98.1 82 18 162/70 (100) 99 02/27/20 19:15 97.7 75 16 164/69 100 Nasal Cannula 3 02/27/20 19:14 97.7 02/27/20 19:00 76 20 174/77 100 Nasal Cannula 3 02/27/20 18:45 78 19 177/95 100 Nasal Cannula 3 02/27/20 18:32 97.7 02/27/20 18:30 75 19 188/80 100 Nasal Cannula 3 02/27/20 18:21 200/94 02/27/20 18:20 74 19 200/94 100 Simple Mask 6 02/27/20 18:10 75 20 198/85 100 Simple Mask 6 02/27/20 18:00 74 21 187/88 100 Simple Mask 6 02/27/20 17:55 73 23 198/93 100 Simple Mask 6 02/27/20 17:50 98.7 75 25 203/94 100 Simple Mask 6 02/27/20 17:50 76 16 100 02/27/20 16:13 71 02/27/20 15:59 97.0 72 20 155/69 (97) 96 Intake and Output 02/27/20 02/28/20 19:00 07:00 Intake Total 605.000 ml 2005.0 ml Output Total 30 ml 1250 ml Balance 575.000 ml 755.0 ml Intake Oral 800 ml IV Total 605.000 ml 1205.0 ml Output Urine Total 1250 ml Estimated Blood Loss 30 ml General Appearance: WD/WN HEENT: normocephalic, atraumatic Respiratory: chest wall non-tender, lungs clear Cardiovascular: normal peripheral pulses, normal rate Abdomen: normal bowel sounds, soft, non tender Genitourinary: normal external genitalia Extremities: no cyanosis Skin: no rash 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 normal Microbiology Date/Time Source Procedure Growth Status 02/27/20 14:40 Nasopharynx SARS-CoV-2 RdRp Gene Assay - Final Complete 02/27/20 18:13 Knee Right Gram Stain - Final Resulted 02/27/20 18:13 Knee Right Aerobic Culture - Preliminary NO GROWTH Resulted 02/27/20 18:13 Knee Right Anaerobic Culture Pending Resulted 02/27/20 18:10 Knee Right Gram Stain - Final Resulted 02/27/20 18:10 Knee Right Aerobic Culture - Preliminary NO GROWTH Resulted 02/27/20 18:10 Knee Right Anaerobic Culture Pending Resulted Laboratory Tests 02/27/20 20:39: POC Whole Blood Glucose 235H 02/28/20 04:50: White Blood Count 13.1H, Red Blood Count 3.08L, Hemoglobin 9.5L, Hematocrit 29.9L, Mean Corpuscular Volume 97, Mean Corpuscular Hemoglobin 30.8, Mean Corpuscular Hemoglobin Concent 31.8L, Red Cell Distribution Width 13.2, Platelet Count 263, Mean Platelet Volume 7.3, Neutrophils (%) (Auto) 71.9, Lymphocytes (%) (Auto) 15.4L, Monocytes (%) (Auto) 9.8, Eosinophils (%) (Auto) 2.5, Basophils (%) (Auto) 0.5, Erythrocyte Sedimentation Rate 121H, Sodium Level 137, Potassium Level 4.7, Chloride Level 104, Carbon Dioxide Level 24, Anion Gap 10, Blood Urea Nitrogen 46H, Creatinine 2.2H, Estimat Glomerular Filtration Rate 28.7, Glucose Level 245H, Calcium Level 8.3L, Phosphorus Level 4.9, Magnesium Level 2.5H, Total Bilirubin 0.7, Aspartate Amino Transf (AST/SGOT ) 17, Alanine Aminotransferase (ALT/SGPT) 14, Alkaline Phosphatase 88, Troponin I 0.000, C-Reactive Protein, Quantitative 30.0H, Total Protein 6.6, Albumin 2.8L , Globulin 3.8, Albumin/Globulin Ratio 0.7L, Thyroid Stimulating Hormone (TSH) 1.966 Current Medications Medications (Trade) Dose Ordered Sig/Tiffany Route PRN Reason Start Time Stop Time Status Last Admin Dose Admin Acetaminophen (Tylenol) 1,000 mg Q8HR ORAL 02/27/20 22:00 03/28/20 21:59 02/28/20 13:23 Aspirin (ASA) 81 mg Q12HR ORAL 02/28/20 09:00 04/13/20 08:59 02/28/20 10:11 Atorvastatin Calcium (Lipitor) 80 mg BEDTIME ORAL 02/27/20 21:00 05/27/20 20:59 02/27/20 20:42 Carvedilol (Coreg) 12.5 mg EVERY 12 HOURS ORAL 02/27/20 21:00 03/28/20 08:59 02/28/20 10:12 Cefazolin Sodium 1 gm/Dextrose 55 ml @ 110 mls/hr Q12H IVPB 02/28/20 00:00 03/05/20 11:59 02/28/20 12:00 Clonidine HCl (Catapres Tab) 0.1 mg Q4H PRN ORAL SBP > 160mmHg 02/27/20 20:45 05/27/20 08:44 Dextrose (Dextrose 50%) 25 ml Q30M PRN IV Hypoglycemia 02/27/20 18:15 05/27/20 06:44 Dextrose (Dextrose 50%) 50 ml Q30M PRN IV Hypoglycemia 02/27/20 20:00 05/27/20 19:59 Dextrose/ Electrolytes 1,000 ml @ 75 mls/hr [id number] IV 02/27/20 21:00 03/28/20 20:59 02/27/20 21:38 Diphenhydramine HCl (Benadryl) 25 mg Q8H PRN IVP Itching 02/28/20 12:30 03/29/20 12:29 02/28/20 13:23 Docusate Sodium (Colace) 100 mg THREE TIMES A DAY ORAL 02/28/20 09:00 03/29/20 08:59 02/28/20 13:25 Gabapentin (Neurontin) 100 mg Q8HR ORAL 02/27/20 22:00 03/28/20 21:59 02/28/20 13:23 Heparin Sodium (Porcine) (Heparin 5000 units/ml) 5,000 units EVERY 8 HOURS SUBQ 7/24/20 06:00 04/13/20 05:59 02/28/20 13:21 Insulin Aspart (NovoLOG) BEFORE MEALS AND HS SUBQ 02/27/20 21:00 05/27/20 11:29 02/28/20 12:00 Magnesium Hydroxide (Mom) 30 ml DAILYPRN PRN ORAL Constipation 02/27/20 21:00 03/28/20 20:59 Montelukast Sodium (Singulair) 10 mg DAILY@1600 ORAL 02/28/20 16:00 05/27/20 15:59 Morphine Sulfate (Morphine Sulfate) 1 mg Q4H PRN IVP Moderate Breakthru Pain (5-7) 02/27/20 20:30 03/05/20 16:29 Morphine Sulfate (Morphine Sulfate) 2 mg Q4H PRN IVP Severe Breakthru Pain (>7) 02/27/20 20:15 03/05/20 10:29 02/28/20 12:02 Ondansetron HCl (Zofran) 4 mg Q6H PRN IVP Nausea & Vomiting 02/27/20 20:00 03/28/20 19:59 Oxycodone HCl (OxyCONTIN) 20 mg EVERY 12 HOURS ORAL 02/27/20 21:00 03/05/20 20:59 02/28/20 10:13 Oxycodone HCl (Roxicodone) 5 mg Q1H PRN ORAL Mild breakthrough pain 2-4 02/27/20 20:15 03/05/20 16:29 Pantoprazole (Protonix) 40 mg Q12HR ORAL 02/27/20 21:00 03/28/20 13:44 02/28/20 10:10 Tamsulosin HCl (Flomax) 0.4 mg BID ORAL 02/28/20 09:00 03/28/20 20:59 02/28/20 10:10 Temazepam (RestoriL) 7.5 mg HSPRN PRN ORAL Insomnia 02/28/20 21:00 03/05/20 20:59 Assessment/Plan Problems: (1) Postoperative pain of knee (2) Diabetes mellitus (3) History of asthma (4) BPH (benign prostatic hyperplasia) Assessment/Plan doing better sliding scale pain management respiratory treatment dvt prophylaxis Steven Ngo MD Feb 28, 2020 13:36
--- NOTE | 2020-02-28 13:38 | 48 Hour Post Anesthesia Eval ---
Post Anesthesia Evaluation Procedure: R Knee Instrument Change Date of Evaluation: Feb 28, 2020 Time of Evaluation: 13:36 Blood Pressure Systolic: 142 0: 76 Pulse Rate: 72 Respiratory Rate: 20 Temperature (Fahrenheit): 97.8 O2 Sat by Pulse Oximetry: 98 Airway: patent Nausea: No Vomiting: No Pain Intensity: 2 Hydration Status: adequate Cardiopulmonary Status: stable Mental Status/LOC: patient returned to baseline Follow-up Care/Observations: n/a Post-Anesthesia Complications: none Follow-up care needed: N/A Matthew Red MD Feb 28, 2020 13:37
--- NOTE | 2020-02-28 14:02 | NUR ---
P.T Note: late entry 1045 P.T evaluation completed and tx initiated per TKR protocol. Please refer to P.T evaluation for current functional status. Pt is alert, O x 4 , pleasant, highly motivated and cooperative. Pt is limited by pin and LOM of the R knee. Pt currently requires verbal cues and MOD A x 1 for bed mobility and transfers and MIN A x 1 for gait/ambulation using the FWW. Pt's concern is that he lives alone and no one would assist if he goes straight to home from the hospital. Based on pt's PLOF, home situation and current functional status s/p TKA pt would require SNF for short term rehab VS home P.T. upon DC from this hospital. For the meantime , Pt will be seen [facility] for skilled P.T services to prepare pt to the next level of care. Pt is cleared for OOB activities with nursing assistance using the FWW. Recommend : Bedside commode in the room. Thank you for this referral.
[2020-02-28] MEDS ORDERED: Heparin1,000 units/500ml Premix(Conc:2 units/ml) IV PRN (14:45)
[2020-02-28] MEDS ORDERED: Lidocaine 1% Plain 30 ml INJ PRN (14:45)
--- NOTE | 2020-02-28 14:45 | NUR ---
NURSE NOTES: Spoke to Dr. Padilla regarding patient current status, orders received for PICC placement and discontinue CPM use, Reji PT notified.
--- NOTE | 2020-02-28 15:05 | Diagnostic Imaging Report ---
Indications: Postoperative, history of knee pain and total knee replacement Technique: Two views of the right knee Comparison: None Findings: Two postoperative views of the knee demonstrate total knee arthroplasty, good anatomic alignment of the prosthesis. . There is postsurgical soft tissue air. Impression: Postoperative right knee, no unusual features.
[2020-02-28 16:00] VITALS: BP 145/64
--- NOTE | 2020-02-28 17:00 | NUR ---
NURSE NOTES: Patient updated with new order for PICC line, consent signed. LAURIE PICC line inserted, flushed, dressing CDI, site no redness/swelling/bleeding/bruising. Dr. Padilla updated that PICC insertion completed.
--- NOTE | 2020-02-28 17:08 | Pre-Procedure Note/Attestation ---
Pre-Procedure Note/Attestation Complete Prior to Procedure Planned Procedure: not applicable Procedure Narrative: PICC Indications for Procedure Pre-Operative Diagnosis: needs IV access Attestation I attest that I discussed the nature of the procedure; its benefits; risks and complications; and alternatives (and the risks and benefits of such alternatives ), prior to the procedure, with the patient (or the patient's legal payroll representative). I attest that, if there was a reasonable possibility of needing a blood transfusion, the patient (or the patient's legal payroll representative) was given the [facility] standardized written summary, pursuant to the Abdi Abi Blood Safety Act ([place] Health and Safety Code # 1645, as amended). I attest that I re-evaluated the patient just prior to the surgery and that there has been no change in the patient's H&P, except as documented below: Julius Wilkins MD Feb 28, 2020 17:08
--- NOTE | 2020-02-28 17:09 | Brief Operative Note ---
Immediate Post Operative Note Operative Note Pre-op Diagnosis: needs IV access Procedure: PICC Post-op Diagnosis: same as pre-op Surgeon: Davie Berry Specimen: none Complications: none Fluids: none Implant(s) used?: No Julius Berry MD Feb 28, 2020 17:09
--- NOTE | 2020-02-28 17:10 | NUR ---
RADIOLOGY NOTE: RIGHT UPPER EXTREMITY PICC LINE PLACED BY DR. LELO KLEIN. FA
--- NOTE | 2020-02-28 17:15 | Diagnostic Imaging Report ---
Indications: Needs long-term IV access Technique: Ultrasound confirms patent compressible right basilic vein. Total sterile technique, including sterile probe cover and sterile gel, hat, mask, sterile gown, large sterile drape, and preparation with 2% chlorhexidine utilized. Local anesthesia with 1% lidocaine. Under real-time ultrasound guidance, puncture is vein using 21-gauge needle, documented and archived, passage 0.018 guidewire under direct fluoroscopy, which was used to determine appropriate catheter length, exchange for 4 Uzbek peel-away sheath. 4 Uzbek Bard dual-lumen power PICC cut to 39 cm. It was inserted through the peel-away sheath. Peel-away sheath and guidewire removed. Catheter fixed to the skin. Both catheter ports aspirated and flushed. Patient tolerated procedure well, without immediate complication. Digital radiograph documents satisfactory catheter tip position, at the cavoatrial junction. Total fluoroscopy time 23.6 seconds. Total dose area product 0.02319 mGym2 Total number of images: 1 Impression: Successful placement of right arm PICC under sonographic and fluoroscopic guidance, as described above.
[2020-02-28] MEDS: Montelukast 10mg tablet ORAL SCH (17:27)
--- NOTE | 2020-02-28 17:36 | NUR ---
*-*DISCHARGE PLANNING*-* PATIENT HSA BEEN REFERRED TO: RICKY RUIZ P: [phone] S/W CELE[facility], FAX CLINICALS TO [facility] P: [phone] S/W ЮЛИЯ, WILL CALL BACK
[2020-02-28] MEDS ORDERED: Iron Sucrose 200 MG in NS 110 ML IV ONE (18:00)
--- NOTE | 2020-02-28 19:10 | NUR ---
HAND-OFF: Report given to Richi KRAFT, rounds made, patient stable. Applied rolled towel to right ankle.
--- NOTE | 2020-02-28 19:36 | NUR ---
NURSE NOTES: Report received from SWAPNIL Walls. Patient in stable condition. Dressing in the R knee, intact, a little stained but otherwise iris. Patient denies any pain as of the moment. Does not show any signs of distress. Sosa intact and draining well. PICC line noted in the LAURIE.
[2020-02-28 20:00] VITALS: BP 120/56
[2020-02-28] MEDS: Dyna-Hex 2% Top Sol 2oz TOPIC SCH (20:00)
--- NOTE | 2020-02-28 20:15 | Progress Note ---
DATE: 02/28/2020 SUBJECTIVE: Patient is status post I and D right total knee arthroplasty. Patient is doing relatively well. He has physical therapy. He is currently on the CPM machine. PHYSICAL EXAMINATION: GENERAL: Patient is resting comfortably in examining bed. Incision is clean, dry, intact. Posterior calf is soft. NEUROVASCULAR: Normal. ASSESSMENT: Status post incision and drainage, right total knee arthroplasty. DISCUSSION: At this point, I recommend is to go ahead and continue with the medical management for his renal issues. As it relates to his knee, it looks like he is doing well. I would like him to continue with the physical therapy. I would like to hold off on the CPM given that I do not want tension to be placed on the skin given that it was opened for approximately 36 hours. Given that there was I and D and open dehiscence extended into the knee joint, I want to keep him on 6 weeks IV antibiotics. PICC line will be called in. Antibiotics will be determined as per Infectious Disease. Ananth Padilla M.D. DR: MARCO JOB#: [id number] CC:
[2020-02-28] MEDS: ceFAZolin sod 1 GM in NS 55 ML IVPB SCH (20:48)
[2020-02-28] MEDS: Atorvastatin 80mg tab ORAL SCH (20:48)
[2020-02-29] VITALS: BP 145/60
[2020-02-29 04:00] VITALS: BP 152/84
[2020-02-29] MEDS: Heparin 5000 units/ml inj SUBQ SCH ×3 (05:28→21:10)
[2020-02-29] MEDS: Acetaminophen 500mg (ES) tab ORAL SCH ×3 (05:28→22:12)
[2020-02-29] MEDS: NovoLOG Insulin Flexpen SUBQ SCH ×4 (05:36→21:20)
[2020-02-29 05:53] LABS: BASOPHILS % (AUTO) 0.7 % (0.0-2.0); EOSINOPHILS % (AUTO) 4.3 % (0.0-3.0); HEMATOCRIT 27.6 % (42.0-52.0); HEMOGLOBIN 8.8 G/DL (14.2-18.0); LYMPHOCYTES % (AUTO) 22.1 % (20.0-45.0); MEAN CORPUSCULAR VOLUME 97 FL (80-99); MONOCYTES % (AUTO) 10.4 % (1.0-10.0); NEUTROPHILS % (AUTO) 62.5 % (45.0-75.0); PLATELET COUNT 263 K/UL (150-450); RED BLOOD COUNT 2.84 M/UL (4.70-6.10); WHITE BLOOD COUNT 9.9 K/UL (4.8-10.8)
[2020-02-29 06:28] LABS: ALANINE AMINOTRANSFERASE 8 U/L (12-78); ALBUMIN 2.4 G/DL (3.4-5.0); ALBUMIN/GLOBULIN RATIO 0.7 (1.0-2.7); ALKALINE PHOSPHATASE 81 U/L (46-116); ANION GAP 8 mmol/L (5-15); ASPARTATE AMINO TRANSFERASE 15 U/L (15-37); BILIRUBIN,TOTAL 0.4 MG/DL (0.2-1.0); BLOOD UREA NITROGEN 40 mg/dL (7-18); CALCIUM 7.7 MG/DL (8.5-10.1); CARBON DIOXIDE 25 MMOL/L (21-32); CHLORIDE 104 MMOL/L (98-107); CREATININE 2.3 MG/DL (0.55-1.30); PHOSPHORUS 3.4 MG/DL (2.5-4.9); POTASSIUM 4.4 MMOL/L (3.5-5.1); SODIUM 137 MMOL/L (136-145)
--- NOTE | 2020-02-29 07:45 | NUR ---
NURSE NOTES: Report received from SWAPNIL Stoddard. Patient in stable condition. No acute distress noted. Denies any pain at this time. Dressing in the R knee clean, dry and intact. Sosa intact and draining clear yellow urine. PICC line noted in the LAURIE intact. Call light within reach. Will continue monitor.
[2020-02-29 08:00] VITALS: BP 132/59
[2020-02-29] MEDS: ceFAZolin sod 1 GM in NS 55 ML IVPB SCH (08:50)
[2020-02-29] MEDS: Docusate 100mg cap ORAL SCH ×3 (08:51→17:06)
[2020-02-29] MEDS: Carvedilol 12.5mg tab ORAL SCH ×2 (08:52→21:07)
[2020-02-29] MEDS: Tamsulosin 0.4mg cap ORAL SCH ×2 (08:52→17:07)
[2020-02-29] MEDS: Aspirin Baby 81mg ORAL SCH ×2 (08:52→21:08)
[2020-02-29] MEDS: oxyCONTIN 20mg tab ORAL SCH ×2 (08:52→21:08)
--- NOTE | 2020-02-29 09:42 | Nephrology Progress Note ---
Assessment/Plan Problem List: (1) Renal failure (ARF), acute on chronic (2) Diabetes mellitus (3) BPH (benign prostatic hyperplasia) (4) History of asthma (5) HTN (hypertension) Assessment Acute on chronic renal failure Diabetes mellitus [id number] History of asthma BPH Postoperative right knee pain Anemia Hypertension Plan February 28: Orthopedic procedure February 26. Serum creatinine 2.3 unchanged. Blood pressure blood sugar within acceptable range. EPO started for anemia. February 27: Patient had orthopedic procedure on her right knee yesterday. Renal parameters appears to be stable. Continue to monitor blood pressure and blood sugar. Kidney ultrasound results reviewed. 1 dose of Venofer for low iron given. Continue to avoid nephrotoxic's. Sosa catheter One half normal saline 75 cc an hour Keep blood sugar in check Anemia work-up 2D echocardiogram Hold metformin Pain medication Avoid nephrotoxic's Monitor renal parameters Subjective ROS Limited/Unobtainable: No Constitutional: Reports: malaise, weakness Objective Objective Last 24 Hour Vital Signs Date Time Temp Pulse Resp B/P (MAP) Pulse Ox O2 Delivery O2 Flow Rate FiO2 02/29/20 09:22 97.8 02/29/20 09:00 Room Air 02/29/20 08:52 70 132/59 02/29/20 08:00 98.1 76 18 132/59 (83) 95 02/29/20 05:58 97.8 02/29/20 04:00 97.8 65 18 152/84 (106) 100 02/29/20 00:00 98.0 67 18 145/60 (88) 98 02/28/20 21:00 Nasal Cannula 2.0 02/28/20 20:52 61 120/56 02/28/20 20:00 98.3 61 18 120/56 (77) 98 02/28/20 16:00 97.1 63 19 145/64 (91) 98 02/28/20 13:37 72 20 98 02/28/20 12:00 98.7 96 21 140/74 (96) 95 02/28/20 10:12 76 131/72 Intake and Output 02/28/20 02/29/20 19:00 07:00 Intake Total 1540 ml 375 ml Output Total 800 ml 700 ml Balance 740 ml -325 ml Intake Oral 1090 ml 300 ml IV Total 450 ml 75 ml Output Urine Total 800 ml 700 ml # Bowel Movements 2 1 Current Medications Medications (Trade) Dose Ordered Sig/Tiffany Route PRN Reason Start Time Stop Time Status Last Admin Dose Admin Acetaminophen (Tylenol) 1,000 mg Q8HR ORAL 02/27/20 22:00 03/28/20 21:59 02/29/20 13:25 Aspirin (ASA) 81 mg Q12HR ORAL 02/28/20 09:00 04/13/20 08:59 02/29/20 08:52 Atorvastatin Calcium (Lipitor) 80 mg BEDTIME ORAL 02/27/20 21:00 05/27/20 20:59 02/28/20 20:48 Carvedilol (Coreg) 12.5 mg EVERY 12 HOURS ORAL 02/27/20 21:00 03/28/20 08:59 02/29/20 08:52 Cefazolin Sodium 1 gm/Sodium Chloride 55 ml @ 110 mls/hr Q12HR IVPB 02/28/20 21:00 03/06/20 20:59 02/29/20 08:50 Chlorhexidine Gluconate (Nan-Hex 2%) 1 applic DAILY@2000 TOPIC 02/28/20 20:00 05/28/20 19:59 02/28/20 20:00 Clonidine HCl (Catapres Tab) 0.1 mg Q4H PRN ORAL SBP > 160mmHg 02/27/20 20:45 05/27/20 08:44 Dextrose (Dextrose 50%) 25 ml Q30M PRN IV Hypoglycemia 02/27/20 18:15 05/27/20 06:44 Dextrose (Dextrose 50%) 50 ml Q30M PRN IV Hypoglycemia 02/27/20 20:00 05/27/20 19:59 Diphenhydramine HCl (Benadryl) 25 mg Q8H PRN IVP Itching 02/28/20 12:30 03/29/20 12:29 02/28/20 13:23 Docusate Sodium (Colace) 100 mg THREE TIMES A DAY ORAL 02/28/20 09:00 03/29/20 08:59 02/29/20 12:04 Gabapentin (Neurontin) 100 mg Q8HR ORAL 02/27/20 22:00 03/28/20 21:59 02/29/20 13:25 Heparin Sodium (Porcine) (Heparin 5000 units/ml) 5,000 units EVERY 8 HOURS SUBQ 7/24/20 06:00 04/13/20 05:59 02/29/20 13:30 Insulin Aspart (NovoLOG) BEFORE MEALS AND HS SUBQ 02/27/20 21:00 05/27/20 11:29 02/29/20 12:01 Magnesium Hydroxide (Mom) 30 ml DAILYPRN PRN ORAL Constipation 02/27/20 21:00 03/28/20 20:59 Montelukast Sodium (Singulair) 10 mg DAILY@1600 ORAL 02/28/20 16:00 05/27/20 15:59 02/28/20 17:27 Morphine Sulfate (Morphine Sulfate) 1 mg Q4H PRN IVP Moderate Breakthru Pain (5-7) 02/27/20 20:30 03/05/20 16:29 Morphine Sulfate (Morphine Sulfate) 2 mg Q4H PRN IVP Severe Breakthru Pain (>7) 02/27/20 20:15 03/05/20 10:29 02/29/20 11:11 Ondansetron HCl (Zofran) 4 mg Q6H PRN IVP Nausea & Vomiting 02/27/20 20:00 03/28/20 19:59 Oxycodone HCl (OxyCONTIN) 20 mg EVERY 12 HOURS ORAL 02/27/20 21:00 03/05/20 20:59 02/29/20 08:52 Oxycodone HCl (Roxicodone) 5 mg Q1H PRN ORAL Mild breakthrough pain 2-4 02/27/20 20:15 03/05/20 16:29 Pantoprazole (Protonix) 40 mg Q12HR ORAL 02/27/20 21:00 03/28/20 13:44 02/29/20 08:50 Sodium Chloride 1,000 ml @ 75 mls/hr [id number] IV 02/28/20 15:39 03/29/20 15:38 02/29/20 05:19 Tamsulosin HCl (Flomax) 0.4 mg BID ORAL 02/28/20 09:00 03/28/20 20:59 02/29/20 08:52 Temazepam (RestoriL) 7.5 mg HSPRN PRN ORAL Insomnia 02/28/20 21:00 03/05/20 20:59 Laboratory Tests 02/28/20 17:12: POC Whole Blood Glucose 310H 02/28/20 20:50: POC Whole Blood Glucose 228H 02/29/20 04:15: White Blood Count 9.9, Red Blood Count 2.84L, Hemoglobin 8.8L, Hematocrit 27.6L , Mean Corpuscular Volume 97, Mean Corpuscular Hemoglobin 31.0, Mean Corpuscular Hemoglobin Concent 31.9L, Red Cell Distribution Width 13.0, Platelet Count 263, Mean Platelet Volume 7.4, Neutrophils (%) (Auto) 62.5, Lymphocytes (%) (Auto) 22.1, Monocytes (%) (Auto) 10.4H, Eosinophils (%) (Auto) 4.3H, Basophils (%) (Auto) 0.7, Erythrocyte Sedimentation Rate 116H, Sodium Level 137, Potassium Level 4.4, Chloride Level 104, Carbon Dioxide Level 25, Anion Gap 8, Blood Urea Nitrogen 40H, Creatinine 2.3H, Estimat Glomerular Filtration Rate 27.3, Glucose Level 177H, Calcium Level 7.7L, Phosphorus Level 3.4, Magnesium Level 2.1, Total Bilirubin 0.4, Aspartate Amino Transf (AST/SGOT ) 15, Alanine Aminotransferase (ALT/SGPT) 8L, Alkaline Phosphatase 81, C- Reactive Protein, Quantitative 25.2H, Total Protein 5.9L, Albumin 2.4L, Globulin 3.5, Albumin/Globulin Ratio 0.7L 02/29/20 04:36: POC Whole Blood Glucose 145H Height (Feet): 5 Height (Inches): 5.00 Weight (Pounds): 185 General Appearance: mild distress Cardiovascular: normal rate Respiratory/Chest: decreased breath sounds Abdomen: soft Jer Messer MD Feb 29, 2020 09:42
[2020-02-29] MEDS ORDERED: Tubing IV Secondary IV ONE (10:14)
[2020-02-29] MEDS ORDERED: 1/2 NS 1000ml IV ONE (10:14)
[2020-02-29] MEDS: Morphine Sulfate 2mg/ml Inj(IV/IM USE ONLY) IVP PRN ×3 (11:11→19:43)
[2020-02-29 12:00] VITALS: BP 140/60
--- NOTE | 2020-02-29 13:21 | Internal Med Progress Note ---
Subjective Date of Service: Feb 29, 2020 Physician Name SunniReal Attending Physician Vik Bojorquez MD Current Medications Medications (Trade) Dose Ordered Sig/Tiffany Route PRN Reason Start Time Stop Time Status Last Admin Dose Admin Acetaminophen (Tylenol) 1,000 mg Q8HR ORAL 02/27/20 22:00 03/28/20 21:59 02/29/20 05:28 Aspirin (ASA) 81 mg Q12HR ORAL 02/28/20 09:00 04/13/20 08:59 02/29/20 08:52 Atorvastatin Calcium (Lipitor) 80 mg BEDTIME ORAL 02/27/20 21:00 05/27/20 20:59 02/28/20 20:48 Carvedilol (Coreg) 12.5 mg EVERY 12 HOURS ORAL 02/27/20 21:00 03/28/20 08:59 02/29/20 08:52 Cefazolin Sodium 1 gm/Sodium Chloride 55 ml @ 110 mls/hr Q12HR IVPB 02/28/20 21:00 03/06/20 20:59 02/29/20 08:50 Chlorhexidine Gluconate (Nan-Hex 2%) 1 applic DAILY@2000 TOPIC 02/28/20 20:00 05/28/20 19:59 02/28/20 20:00 Clonidine HCl (Catapres Tab) 0.1 mg Q4H PRN ORAL SBP > 160mmHg 02/27/20 20:45 05/27/20 08:44 Dextrose (Dextrose 50%) 25 ml Q30M PRN IV Hypoglycemia 02/27/20 18:15 05/27/20 06:44 Dextrose (Dextrose 50%) 50 ml Q30M PRN IV Hypoglycemia 02/27/20 20:00 05/27/20 19:59 Diphenhydramine HCl (Benadryl) 25 mg Q8H PRN IVP Itching 02/28/20 12:30 03/29/20 12:29 02/28/20 13:23 Docusate Sodium (Colace) 100 mg THREE TIMES A DAY ORAL 02/28/20 09:00 03/29/20 08:59 02/29/20 12:04 Gabapentin (Neurontin) 100 mg Q8HR ORAL 02/27/20 22:00 03/28/20 21:59 02/29/20 05:23 Heparin Sodium (Porcine) (Heparin 5000 units/ml) 5,000 units EVERY 8 HOURS SUBQ 02/28/20 06:00 04/13/20 05:59 02/29/20 05:28 Insulin Aspart (NovoLOG) BEFORE MEALS AND HS SUBQ 02/27/20 21:00 05/27/20 11:29 02/29/20 12:01 Magnesium Hydroxide (Mom) 30 ml DAILYPRN PRN ORAL Constipation 02/27/20 21:00 03/28/20 20:59 Montelukast Sodium (Singulair) 10 mg DAILY@1600 ORAL 02/28/20 16:00 05/27/20 15:59 02/28/20 17:27 Morphine Sulfate (Morphine Sulfate) 1 mg Q4H PRN IVP Moderate Breakthru Pain (5-7) 02/27/20 20:30 03/05/20 16:29 Morphine Sulfate (Morphine Sulfate) 2 mg Q4H PRN IVP Severe Breakthru Pain (>7) 02/27/20 20:15 03/05/20 10:29 02/29/20 11:11 Ondansetron HCl (Zofran) 4 mg Q6H PRN IVP Nausea & Vomiting 02/27/20 20:00 03/28/20 19:59 Oxycodone HCl (OxyCONTIN) 20 mg EVERY 12 HOURS ORAL 02/27/20 21:00 03/05/20 20:59 02/29/20 08:52 Oxycodone HCl (Roxicodone) 5 mg Q1H PRN ORAL Mild breakthrough pain 2-4 02/27/20 20:15 03/05/20 16:29 Pantoprazole (Protonix) 40 mg Q12HR ORAL 02/27/20 21:00 03/28/20 13:44 02/29/20 08:50 Sodium Chloride 1,000 ml @ 75 mls/hr [id number] IV 02/28/20 15:39 03/29/20 15:38 02/29/20 05:19 Tamsulosin HCl (Flomax) 0.4 mg BID ORAL 02/28/20 09:00 03/28/20 20:59 02/29/20 08:52 Temazepam (RestoriL) 7.5 mg HSPRN PRN ORAL Insomnia 02/28/20 21:00 03/05/20 20:59 Allergies: Coded Allergies: No Known Allergies (Unverified , 02/27/20) ROS Limited/Unobtainable: No Constitutional: Reports: no symptoms HEENT: Reports: no symptoms Cardiovascular: Reports: no symptoms Respiratory: Reports: no symptoms Gastrointestinal/Abdominal: Reports: no symptoms Genitourinary: Reports: no symptoms Neurologic/Psychiatric: Reports: no symptoms Subjective 84 YO M admitted with wound dehiscence right knee. S/P complex closure in OR . Cover for Int Med Dr Bojorquez Objective Last Vital Signs Date Time Temp Pulse Resp B/P (MAP) Pulse Ox O2 Delivery O2 Flow Rate FiO2 02/29/20 12:00 98.6 71 18 140/60 (86) 96 02/29/20 09:00 Room Air 02/28/20 21:00 2.0 Laboratory Tests Test 02/28/20 17:12 02/28/20 20:50 02/29/20 04:15 02/29/20 04:36 POC Whole Blood Glucose 310 MG/DL (74-106) H 228 MG/DL (74-106) H 145 MG/DL (74-106) H White Blood Count 9.9 K/UL (4.8-10.8) Red Blood Count 2.84 M/UL (4.70-6.10) L Hemoglobin 8.8 G/DL (14.2-18.0) L Hematocrit 27.6 % (42.0-52.0) L Mean Corpuscular Volume 97 FL (80-99) Mean Corpuscular Hemoglobin 31.0 PG (27.0-31.0) Mean Corpuscular Hemoglobin Concent 31.9 G/DL (32.0-36.0) L Red Cell Distribution Width 13.0 % (11.6-14.8) Platelet Count 263 K/UL (150-450) Mean Platelet Volume 7.4 FL (6.5-10.1) Neutrophils (%) (Auto) 62.5 % (45.0-75.0) Lymphocytes (%) (Auto) 22.1 % (20.0-45.0) Monocytes (%) (Auto) 10.4 % (1.0-10.0) H Eosinophils (%) (Auto) 4.3 % (0.0-3.0) H Basophils (%) (Auto) 0.7 % (0.0-2.0) Erythrocyte Sedimentation Rate 116 MM/HR (0-20) H Sodium Level 137 MMOL/L (136-145) Potassium Level 4.4 MMOL/L (3.5-5.1) Chloride Level 104 MMOL/L (98-107) Carbon Dioxide Level 25 MMOL/L (21-32) Anion Gap 8 mmol/L (5-15) Blood Urea Nitrogen 40 mg/dL (7-18) H Creatinine 2.3 MG/DL (0.55-1.30) H Estimat Glomerular Filtration Rate 27.3 mL/min (>60) Glucose Level 177 MG/DL (74-106) H Calcium Level 7.7 MG/DL (8.5-10.1) L Phosphorus Level 3.4 MG/DL (2.5-4.9) Magnesium Level 2.1 MG/DL (1.8-2.4) Total Bilirubin 0.4 MG/DL (0.2-1.0) Aspartate Amino Transf (AST/SGOT) 15 U/L (15-37) Alanine Aminotransferase (ALT/SGPT) 8 U/L (12-78) L Alkaline Phosphatase 81 U/L (46-116) C-Reactive Protein, Quantitative 25.2 mg/dL (0.00-0.90) H Total Protein 5.9 G/DL (6.4-8.2) L Albumin 2.4 G/DL (3.4-5.0) L Globulin 3.5 g/dL Albumin/Globulin Ratio 0.7 (1.0-2.7) L Test 02/29/20 11:46 POC Whole Blood Glucose Pending Microbiology Date/Time Source Procedure Growth Status 02/27/20 14:40 Nasopharynx SARS-CoV-2 RdRp Gene Assay - Final Complete 02/27/20 02:14 Nasal Nares MRSA Culture - Final NO METHICILLIN RESISTANT STAPH AUREUS... Complete 02/27/20 18:13 Knee Right Gram Stain - Final Resulted 02/27/20 18:13 Aerobic Culture - Preliminary Staphylococcus Species Resulted 02/27/20 18:13 Knee Right Anaerobic Culture - Preliminary NO ANAEROBES ISOLATED Resulted 02/27/20 18:10 Knee Right Gram Stain - Final Resulted 02/27/20 18:10 Knee Right Aerobic Culture - Preliminary NO GROWTH AFTER 48 HOURS Resulted 02/27/20 18:10 Knee Right Anaerobic Culture - Preliminary NO GROWTH Resulted 02/27/20 02:14 Rectum VRE Culture - Final Enterococcus Faecalis - Vre Complete Intake and Output 02/28/20 02/29/20 19:00 07:00 Intake Total 1540 ml 375 ml Output Total 800 ml 700 ml Balance 740 ml -325 ml Intake Oral 1090 ml 300 ml IV Total 450 ml 75 ml Output Urine Total 800 ml 700 ml # Bowel Movements 2 1 Objective PHYSICAL EXAMINATION: GENERAL: The patient is a well-developed and well-nourished male, in no apparent distress. HEENT: Eyes, pupils are equal and responsive to light and accommodation. Extraocular movements are intact. NECK: Supple without lymphadenopathy. CHEST: Lungs are clear to auscultation bilaterally without wheezes or rales. CARDIOVASCULAR: Regular rate. S1, S2 normal without murmurs, rubs, or gallops. ABDOMEN: Soft, nontender, and nondistended. Positive bowel sounds. No evidence of hepatosplenomegaly. Currently, no rebound or guarding noted. EXTREMITIES: Negative for clubbing, cyanosis, or edema. RECTAL/GENITAL: Not performed. NEUROLOGIC: Cranial nerves II through XII are grossly intact without focal deficits. Motor strength is 5/5 bilaterally. Deep tendon reflexes are 2+ plantar. Assessment/Plan Assessment/Plan ASSESSMENT: This is an 84-year-old male with: 1. Right knee pain. 2. Diabetes type 2. 3. Hypertension. 4. Asthma. 5. Benign prostatic hypertrophy. 6. Hypercholesteremia. 7. Cerebrovascular disease, status post cerebrovascular accident. 8. Wound dehiscence right knee surgery TREATMENT: 1. Right knee pain. An Orthopedic consultation has been obtained with Dr. Ananth Padilla. The patient is scheduled for right total knee replacement on 02/27/2020. Follow recommendation of Orthopedic Surgery. 2. Diabetes type 2. NovoLog sliding scale has been instituted. Discontinue metformin as the patient is NPO for surgery. 3. Cerebrovascular disease. The patient is status post cerebrovascular accident. 4. Asthma. Continue Singulair as above. Albuterol 2.5 mg nebulized q.4 hours p.r.n. wheezing. 5. Benign prostatic hypertrophy. Continue Flomax as above. 6. Hypertension. Continue Coreg as above. 7. Hypercholesterolemia. Continue atorvastatin as above. 8. S/P complex closure in OR on 02/27/20 9. Discharge planning: [facility] Real Moeller MD Feb 29, 2020 13:21
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
[2020-02-29 16:00] VITALS: BP 123/63
[2020-02-29] MEDS: Montelukast 10mg tablet ORAL SCH (17:07)
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
--- NOTE | 2020-02-29 19:34 | NUR ---
HAND-OFF: Report given to SWAPNIL Tejeda.
--- NOTE | 2020-02-29 19:35 | NUR ---
Report received from SWAPNIL Delgado. Pt alert, oriented, awake. No acute distress noted. Report pain of 8/10 will give meds as ordered. Dressing in the R knee clean, dry and intact. Sosa intact, draining to gravity, clear yellow urine. PICC line noted in the LAURIE intact and running fluids as ordered. Call light within reach. Will continue monitor.
--- NOTE | 2020-02-29 19:37 | Pulmonology Progress Note ---
Subjective ROS Limited/Unobtainable: No Allergies: Coded Allergies: No Known Allergies (Unverified , 02/27/20) Objective Last 24 Hour Vital Signs Date Time Temp Pulse Resp B/P (MAP) Pulse Ox O2 Delivery O2 Flow Rate FiO2 02/29/20 16:00 97.6 80 18 123/63 (83) 95 02/29/20 15:22 97.6 02/29/20 13:55 98.6 02/29/20 12:00 98.6 71 18 140/60 (86) 96 02/29/20 09:22 97.8 02/29/20 09:00 Room Air 02/29/20 08:52 70 132/59 02/29/20 08:00 98.1 76 18 132/59 (83) 95 02/29/20 04:00 97.8 65 18 152/84 (106) 100 02/29/20 00:00 98.0 67 18 145/60 (88) 98 02/28/20 21:00 Nasal Cannula 2.0 02/28/20 20:52 61 120/56 02/28/20 20:00 98.3 61 18 120/56 (77) 98 Intake and Output 02/28/20 02/29/20 19:00 07:00 Intake Total 1540 ml 375 ml Output Total 800 ml 700 ml Balance 740 ml -325 ml Intake Oral 1090 ml 300 ml IV Total 450 ml 75 ml Output Urine Total 800 ml 700 ml # Bowel Movements 2 1 General Appearance: WD/WN HEENT: normocephalic, atraumatic Respiratory: chest wall non-tender, lungs clear Cardiovascular: normal peripheral pulses, normal rate Abdomen: normal bowel sounds, soft, non tender Genitourinary: normal external genitalia Extremities: no cyanosis Skin: no rash 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 Complete 02/27/20 18:13 Knee Right Gram Stain - Final Resulted 02/27/20 18:13 Aerobic Culture - Preliminary Staphylococcus Species Resulted 02/27/20 18:13 Knee Right Anaerobic Culture - Preliminary NO ANAEROBES ISOLATED Resulted 02/27/20 18:10 Knee Right Gram Stain - Final Resulted 02/27/20 18:10 Knee Right Aerobic Culture - Preliminary NO GROWTH AFTER 48 HOURS Resulted 02/27/20 18:10 Knee Right Anaerobic Culture - Preliminary NO GROWTH Resulted 02/27/20 02:14 Rectum VRE Culture - Final Enterococcus Faecalis - Vre Complete Laboratory Tests 02/28/20 20:50: POC Whole Blood Glucose 228H 02/29/20 04:15: White Blood Count 9.9, Red Blood Count 2.84L, Hemoglobin 8.8L, Hematocrit 27.6L , Mean Corpuscular Volume 97, Mean Corpuscular Hemoglobin 31.0, Mean Corpuscular Hemoglobin Concent 31.9L, Red Cell Distribution Width 13.0, Platelet Count 263, Mean Platelet Volume 7.4, Neutrophils (%) (Auto) 62.5, Lymphocytes (%) (Auto) 22.1, Monocytes (%) (Auto) 10.4H, Eosinophils (%) (Auto) 4.3H, Basophils (%) (Auto) 0.7, Erythrocyte Sedimentation Rate 116H, Sodium Level 137, Potassium Level 4.4, Chloride Level 104, Carbon Dioxide Level 25, Anion Gap 8, Blood Urea Nitrogen 40H, Creatinine 2.3H, Estimat Glomerular Filtration Rate 27.3, Glucose Level 177H, Calcium Level 7.7L, Phosphorus Level 3.4, Magnesium Level 2.1, Total Bilirubin 0.4, Aspartate Amino Transf (AST/SGOT ) 15, Alanine Aminotransferase (ALT/SGPT) 8L, Alkaline Phosphatase 81, C- Reactive Protein, Quantitative 25.2H, Total Protein 5.9L, Albumin 2.4L, Globulin 3.5, Albumin/Globulin Ratio 0.7L 02/29/20 04:36: POC Whole Blood Glucose 145H 02/29/20 11:46: POC Whole Blood Glucose [Pending] Current Medications Medications (Trade) Dose Ordered Sig/Tiffany Route PRN Reason Start Time Stop Time Status Last Admin Dose Admin Acetaminophen (Tylenol) 1,000 mg Q8HR ORAL 02/27/20 22:00 03/28/20 21:59 02/29/20 13:25 Aspirin (ASA) 81 mg Q12HR ORAL 02/28/20 09:00 04/13/20 08:59 02/29/20 08:52 Atorvastatin Calcium (Lipitor) 80 mg BEDTIME ORAL 02/27/20 21:00 05/27/20 20:59 02/28/20 20:48 Carvedilol (Coreg) 12.5 mg EVERY 12 HOURS ORAL 02/27/20 21:00 03/28/20 08:59 02/29/20 08:52 Chlorhexidine Gluconate (Nan-Hex 2%) 1 applic DAILY@2000 TOPIC 02/28/20 20:00 05/28/20 19:59 02/28/20 20:00 Clonidine HCl (Catapres Tab) 0.1 mg Q4H PRN ORAL SBP > 160mmHg 02/27/20 20:45 05/27/20 08:44 Dextrose (Dextrose 50%) 25 ml Q30M PRN IV Hypoglycemia 02/27/20 18:15 05/27/20 06:44 Dextrose (Dextrose 50%) 50 ml Q30M PRN IV Hypoglycemia 02/27/20 20:00 05/27/20 19:59 Diphenhydramine HCl (Benadryl) 25 mg Q8H PRN IVP Itching 02/28/20 12:30 03/29/20 12:29 02/28/20 13:23 Docusate Sodium (Colace) 100 mg THREE TIMES A DAY ORAL 02/28/20 09:00 03/29/20 08:59 02/29/20 17:06 Epoetin Kyle (Epoetin Kyle-EPBX(NON ESRD)) 10,000 unit MON-MON-MON SUBQ 03/02/20 21:00 05/31/20 20:59 Gabapentin (Neurontin) 100 mg Q8HR ORAL 02/27/20 22:00 03/28/20 21:59 02/29/20 13:25 Heparin Sodium (Porcine) (Heparin 5000 units/ml) 5,000 units EVERY 8 HOURS SUBQ 02/28/20 06:00 04/13/20 05:59 02/29/20 13:30 Insulin Aspart (NovoLOG) BEFORE MEALS AND HS SUBQ 02/27/20 21:00 05/27/20 11:29 02/29/20 17:05 Linezolid 300 ml @ 300 mls/hr EVERY 12 HOURS IVPB 02/29/20 21:00 03/07/20 20:59 Magnesium Hydroxide (Mom) 30 ml DAILYPRN PRN ORAL Constipation 02/27/20 21:00 03/28/20 20:59 Montelukast Sodium (Singulair) 10 mg DAILY@1600 ORAL 02/28/20 16:00 05/27/20 15:59 02/29/20 17:07 Morphine Sulfate (Morphine Sulfate) 1 mg Q4H PRN IVP Moderate Breakthru Pain (5-7) 02/27/20 20:30 03/05/20 16:29 Morphine Sulfate (Morphine Sulfate) 2 mg Q4H PRN IVP Severe Breakthru Pain (>7) 02/27/20 20:15 03/05/20 10:29 02/29/20 14:52 Ondansetron HCl (Zofran) 4 mg Q6H PRN IVP Nausea & Vomiting 02/27/20 20:00 03/28/20 19:59 Oxycodone HCl (OxyCONTIN) 20 mg EVERY 12 HOURS ORAL 02/27/20 21:00 03/05/20 20:59 02/29/20 08:52 Oxycodone HCl (Roxicodone) 5 mg Q1H PRN ORAL Mild breakthrough pain 2-4 02/27/20 20:15 03/05/20 16:29 Pantoprazole (Protonix) 40 mg Q12HR ORAL 02/27/20 21:00 03/28/20 13:44 02/29/20 08:50 Sodium Chloride 1,000 ml @ 50 mls/hr Q20H IV 02/29/20 14:00 03/29/20 13:59 02/29/20 14:00 Tamsulosin HCl (Flomax) 0.4 mg BID ORAL 02/28/20 09:00 03/28/20 20:59 02/29/20 17:07 Temazepam (RestoriL) 7.5 mg HSPRN PRN ORAL Insomnia 02/28/20 21:00 03/05/20 20:59 Assessment/Plan Problems: (1) Postoperative wound dehiscence (2) Postoperative pain of knee (3) Diabetes mellitus (4) History of asthma (5) BPH (benign prostatic hyperplasia) Assessment/Plan doing better sliding scale pain management respiratory treatment dvt prophylaxis Steven Ngo MD Feb 29, 2020 19:37
[2020-02-29] MEDS: Dyna-Hex 2% Top Sol 2oz TOPIC SCH (19:42)
[2020-02-29 20:00] VITALS: BP 120/62
[2020-02-29] MEDS: Atorvastatin 80mg tab ORAL SCH (21:09)
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
[2020-03-01] VITALS: BP 137/68
[2020-03-01 04:00] VITALS: BP 140/62
[2020-03-01] MEDS: Acetaminophen 500mg (ES) tab ORAL SCH ×3 (05:08→21:23)
[2020-03-01] MEDS: Heparin 5000 units/ml inj SUBQ SCH ×3 (05:11→21:40)
[2020-03-01 05:14] LABS: BASOPHILS % (AUTO) 0.5 % (0.0-2.0); EOSINOPHILS % (AUTO) 3.5 % (0.0-3.0); HEMATOCRIT 28.8 % (42.0-52.0); LYMPHOCYTES % (AUTO) 24.7 % (20.0-45.0); MEAN CORPUSCULAR VOLUME 98 FL (80-99); MONOCYTES % (AUTO) 9.3 % (1.0-10.0); NEUTROPHILS % (AUTO) 62.1 % (45.0-75.0); PLATELET COUNT 274 K/UL (150-450); RED BLOOD COUNT 2.94 M/UL (4.70-6.10)
[2020-03-01 05:34] LABS: ANION GAP 10 mmol/L (5-15); BLOOD UREA NITROGEN 34 mg/dL (7-18); CALCIUM 7.8 MG/DL (8.5-10.1); CARBON DIOXIDE 22 MMOL/L (21-32); CHLORIDE 104 MMOL/L (98-107); CREATININE 2.1 MG/DL (0.55-1.30); POTASSIUM 4.6 MMOL/L (3.5-5.1); SODIUM 136 MMOL/L (136-145)
[2020-03-01] MEDS: NovoLOG Insulin Flexpen SUBQ SCH ×4 (06:41→21:38)
--- NOTE | 2020-03-01 07:10 | NUR ---
NURSE NOTES: Received report from Savanah KRAFT, rounds made pt stable awake a/ox4, breaths regular unlabored on RA, pt denies any pain at this time pt having break fast . Pt has a PICC on the [facility]URIE with IVF, patent asymptomatic , Sosa catheter in palace and anchored to the Left thigh , call light with in reach ,side rails [id number] will continue to monitor
--- NOTE | 2020-03-01 07:18 | NUR ---
HAND-OFF: Report given to SWAPNIL Pwoell.
[2020-03-01 08:00] VITALS: BP 122/68
[2020-03-01] MEDS: Carvedilol 12.5mg tab ORAL SCH ×2 (08:10→21:22)
[2020-03-01] MEDS: Docusate 100mg cap ORAL SCH ×3 (08:11→17:10)
[2020-03-01] MEDS: oxyCONTIN 20mg tab ORAL SCH ×2 (08:11→21:33)
[2020-03-01] MEDS: Aspirin Baby 81mg ORAL SCH ×2 (08:11→21:24)
[2020-03-01] MEDS: Tamsulosin 0.4mg cap ORAL SCH ×2 (08:11→17:11)
--- NOTE | 2020-03-01 09:30 | NUR ---
NURSE NOTES: pt c/o of chest tightens and chest pressure on the left side , vitals checked BP 166/74 HR 68, will notify
--- NOTE | 2020-03-01 09:46 | NUR ---
NURSE NOTES: Vitals rechecked bp 179/79 HR 67 O2sat 99 on 2L NC , PRN clonidine given ,, will continue to monitor,
--- NOTE | 2020-03-01 10:05 | NUR ---
NURSE NOTES: Dr. Bojorquez called and notified regarding patient's report of chest pressure/tightness, new orders received. Per Dr. Bojorquez, give Imdur if blood pressure greater than 150 s/p PRN clonidine, relayed to primary RN Andre. All orders read back and entered. Called Bryanna in cardiology and notified that patient has STAT EKG order, lab notified of STAT troponin order.
--- NOTE | 2020-03-01 10:29 | NUR ---
PT Note Was advised by nursing to hold off on PT this morning due to patient's c/o chest pressure. W/u is in progress. Will check again in AM.
[2020-03-01] MEDS: Imdur 30mg tab ORAL SCH (10:40)
[2020-03-01 10:52] LABS: ALANINE AMINOTRANSFERASE 13 U/L (12-78); ALBUMIN 2.6 G/DL (3.4-5.0); ALKALINE PHOSPHATASE 86 U/L (46-116); ASPARTATE AMINO TRANSFERASE 23 U/L (15-37); BILIRUBIN,DIRECT 0.1 MG/DL (0.0-0.3); BILIRUBIN,TOTAL 0.4 MG/DL (0.2-1.0); PHOSPHORUS 2.7 MG/DL (2.5-4.9)
--- NOTE | 2020-03-01 11:07 | Nephrology Progress Note ---
Assessment/Plan Problem List: (1) Renal failure (ARF), acute on chronic (2) Diabetes mellitus (3) BPH (benign prostatic hyperplasia) (4) History of asthma (5) HTN (hypertension) Assessment Acute on chronic renal failure Diabetes mellitus [id number] History of asthma BPH Postoperative right knee pain Anemia Hypertension Plan March 01: Orthopedic procedure February 26. Creatinine down to 2.1. DC IV fluid. DC Sosa. Start Starlix for diabetes. Troponin I pending. Discussed with RN. February 28: Orthopedic procedure February 26. Serum creatinine 2.3 unchanged. Blood pressure blood sugar within acceptable range. EPO started for anemia. February 27: Patient had orthopedic procedure on her right knee yesterday. Renal parameters appears to be stable. Continue to monitor blood pressure and blood sugar. Kidney ultrasound results reviewed. 1 dose of Venofer for low iron given. Continue to avoid nephrotoxic's. Sosa catheter One half normal saline 75 cc an hour Keep blood sugar in check Anemia work-up 2D echocardiogram Hold metformin Pain medication Avoid nephrotoxic's Monitor renal parameters Subjective ROS Limited/Unobtainable: No Constitutional: Reports: malaise Objective Objective Last 24 Hour Vital Signs Date Time Temp Pulse Resp B/P (MAP) Pulse Ox O2 Delivery O2 Flow Rate FiO2 03/01/20 10:40 161/73 03/01/20 09:49 179/79 03/01/20 09:00 Nasal Cannula 2.0 03/01/20 08:10 75 122/68 03/01/20 08:00 99.8 75 18 122/68 (86) 95 03/01/20 04:00 98.5 80 18 140/62 (88) 98 03/01/20 00:00 98.6 82 18 137/68 (91) 97 02/29/20 21:07 82 120/62 02/29/20 21:00 Room Air 02/29/20 20:00 99.0 82 18 120/62 (81) 94 02/29/20 16:00 97.6 80 18 123/63 (83) 95 02/29/20 15:22 97.6 02/29/20 13:55 98.6 02/29/20 12:00 98.6 71 18 140/60 (86) 96 Intake and Output 02/29/20 03/01/20 19:00 07:00 Intake Total 850 ml 720 ml Output Total 900 ml 1300 ml Balance -50 ml -580 ml Intake Oral 800 ml 120 ml IV Total 50 ml 600 ml Output Urine Total 900 ml 1300 ml # Bowel Movements 1 1 Laboratory Tests 02/29/20 11:46: POC Whole Blood Glucose [Pending] 03/01/20 03:50: White Blood Count 11.0H, Red Blood Count 2.94L, Hemoglobin 9.0L, Hematocrit 28.8L, Mean Corpuscular Volume 98, Mean Corpuscular Hemoglobin 30.7, Mean Corpuscular Hemoglobin Concent 31.3L, Red Cell Distribution Width 13.0, Platelet Count 274, Mean Platelet Volume 6.8, Neutrophils (%) (Auto) 62.1, Lymphocytes (%) (Auto) 24.7, Monocytes (%) (Auto) 9.3, Eosinophils (%) (Auto) 3.5H, Basophils (%) (Auto) 0.5, Sodium Level 136, Potassium Level 4.6, Chloride Level 104, Carbon Dioxide Level 22, Anion Gap 10, Blood Urea Nitrogen 34H, Creatinine 2.1H, Estimat Glomerular Filtration Rate 30.3, Glucose Level 240H, Calcium Level 7.8L, Phosphorus Level 2.7, Magnesium Level 2.1, Total Bilirubin 0.4, Direct Bilirubin 0.1, Aspartate Amino Transf (AST/SGOT) 23, Alanine Aminotransferase (ALT/SGPT) 13, Alkaline Phosphatase 86, Total Protein 6.2L, Albumin 2.6L 03/01/20 05:15: POC Whole Blood Glucose 255H 03/01/20 10:20: Troponin I [Pending] Height (Feet): 5 Height (Inches): 5.00 Weight (Pounds): 185 General Appearance: no apparent distress, other - Was complaining of chest pain earlier according to the nurse Cardiovascular: normal rate Respiratory/Chest: decreased breath sounds Abdomen: soft Genitourinary/Rectal: other - Sosa in place Jer Messer MD Mar 01, 2020 11:07
[2020-03-01] MEDS: Nateglinide 60mg tab ORAL SCH ×2 (11:34→16:37)
[2020-03-01 12:00] VITALS: BP 161/70
--- NOTE | 2020-03-01 12:10 | NUR ---
NURSE NOTES: Sosa catheter discontinued as ordered , will monitor and encourage pt void
--- NOTE | 2020-03-01 13:19 | NUR ---
NURSE NOTES: Relayed EKG and troponin results to Dr. Ngo. Per MD, if patient has a subsequent episode of chest pain/pressure/tightness, transfer to telemetry unit, order read back and entered. Patient is stable at this time, patient reports chest pressure has subsided and patient is currently resting comfortably.
--- NOTE | 2020-03-01 15:55 | Internal Med Progress Note ---
Subjective Date of Service: Mar 01, 2020 Physician Name SunniReal Attending Physician Vik Bojorquez MD Current Medications Medications (Trade) Dose Ordered Sig/Tiffany Route PRN Reason Start Time Stop Time Status Last Admin Dose Admin Acetaminophen (Tylenol) 1,000 mg Q8HR ORAL 02/27/20 22:00 03/28/20 21:59 03/01/20 14:15 Aspirin (ASA) 81 mg Q12HR ORAL 02/28/20 09:00 04/13/20 08:59 03/01/20 08:11 Atorvastatin Calcium (Lipitor) 80 mg BEDTIME ORAL 02/27/20 21:00 05/27/20 20:59 02/29/20 21:09 Carvedilol (Coreg) 12.5 mg EVERY 12 HOURS ORAL 02/27/20 21:00 03/28/20 08:59 03/01/20 08:10 Chlorhexidine Gluconate (Ann-Hex 2%) 1 applic DAILY@2000 TOPIC 02/28/20 20:00 05/28/20 19:59 02/29/20 19:42 Clonidine HCl (Catapres Tab) 0.1 mg Q4H PRN ORAL SBP > 160mmHg 02/27/20 20:45 05/27/20 08:44 03/01/20 09:49 Dextrose (Dextrose 50%) 25 ml Q30M PRN IV Hypoglycemia 02/27/20 18:15 05/27/20 06:44 Dextrose (Dextrose 50%) 50 ml Q30M PRN IV Hypoglycemia 02/27/20 20:00 05/27/20 19:59 Diphenhydramine HCl (Benadryl) 25 mg Q8H PRN IVP Itching 02/28/20 12:30 03/29/20 12:29 02/28/20 13:23 Docusate Sodium (Colace) 100 mg THREE TIMES A DAY ORAL 02/28/20 09:00 03/29/20 08:59 03/01/20 14:16 Epoetin Kyle (Epoetin Kyle-EPBX(NON ESRD)) 10,000 unit MON-MON-MON SUBQ 03/02/20 21:00 05/31/20 20:59 Gabapentin (Neurontin) 100 mg Q8HR ORAL 02/27/20 22:00 03/28/20 21:59 03/01/20 14:15 Heparin Sodium (Porcine) (Heparin 5000 units/ml) 5,000 units EVERY 8 HOURS SUBQ 02/28/20 06:00 04/13/20 05:59 03/01/20 14:16 Insulin Aspart (NovoLOG) BEFORE MEALS AND HS SUBQ 02/27/20 21:00 05/27/20 11:29 03/01/20 11:37 Isosorbide Mononitrate (Imdur) 30 mg DAILY ORAL 03/01/20 10:15 03/31/20 10:14 03/01/20 10:40 Linezolid 300 ml @ 300 mls/hr EVERY 12 HOURS IVPB 02/29/20 21:00 03/07/20 20:59 03/01/20 08:10 Magnesium Hydroxide (Mom) 30 ml DAILYPRN PRN ORAL Constipation 02/27/20 21:00 03/28/20 20:59 Montelukast Sodium (Singulair) 10 mg DAILY@1600 ORAL 02/28/20 16:00 05/27/20 15:59 02/29/20 17:07 Morphine Sulfate (Morphine Sulfate) 1 mg Q4H PRN IVP Moderate Breakthru Pain (5-7) 02/27/20 20:30 03/05/20 16:29 Morphine Sulfate (Morphine Sulfate) 2 mg Q4H PRN IVP Severe Breakthru Pain (>7) 02/27/20 20:15 03/05/20 10:29 02/29/20 19:43 Nateglinide (Starlix) 60 mg TIAC ORAL 03/01/20 11:30 03/31/20 11:29 03/01/20 11:34 Ondansetron HCl (Zofran) 4 mg Q6H PRN IVP Nausea & Vomiting 02/27/20 20:00 03/28/20 19:59 Oxycodone HCl (OxyCONTIN) 20 mg EVERY 12 HOURS ORAL 02/27/20 21:00 03/05/20 20:59 03/01/20 08:11 Oxycodone HCl (Roxicodone) 5 mg Q1H PRN ORAL Mild breakthrough pain 2-4 02/27/20 20:15 03/05/20 16:29 Pantoprazole (Protonix) 40 mg Q12HR ORAL 02/27/20 21:00 03/28/20 13:44 03/01/20 08:11 Tamsulosin HCl (Flomax) 0.4 mg BID ORAL 02/28/20 09:00 03/28/20 20:59 03/01/20 08:11 Temazepam (RestoriL) 7.5 mg HSPRN PRN ORAL Insomnia 02/28/20 21:00 03/05/20 20:59 Allergies: Coded Allergies: No Known Allergies (Unverified , 02/27/20) ROS Limited/Unobtainable: No Constitutional: Reports: no symptoms HEENT: Reports: no symptoms Cardiovascular: Reports: no symptoms Respiratory: Reports: no symptoms Gastrointestinal/Abdominal: Reports: no symptoms Genitourinary: Reports: no symptoms Neurologic/Psychiatric: Reports: no symptoms Subjective 84 YO M admitted with wound dehiscence right knee. S/P complex closure in OR . Cover for Int Med Dr Bojorquez Objective Last Vital Signs Date Time Temp Pulse Resp B/P (MAP) Pulse Ox O2 Delivery O2 Flow Rate FiO2 03/01/20 10:40 161/73 03/01/20 09:00 Nasal Cannula 2.0 03/01/20 08:10 75 03/01/20 08:00 99.8 18 95 Laboratory Tests Test 02/29/20 16:12 02/29/20 21:18 03/01/20 03:50 03/01/20 05:15 POC Whole Blood Glucose Pending Pending 255 MG/DL (74-106) H White Blood Count 11.0 K/UL (4.8-10.8) H Red Blood Count 2.94 M/UL (4.70-6.10) L Hemoglobin 9.0 G/DL (14.2-18.0) L Hematocrit 28.8 % (42.0-52.0) L Mean Corpuscular Volume 98 FL (80-99) Mean Corpuscular Hemoglobin 30.7 PG (27.0-31.0) Mean Corpuscular Hemoglobin Concent 31.3 G/DL (32.0-36.0) L Red Cell Distribution Width 13.0 % (11.6-14.8) Platelet Count 274 K/UL (150-450) Mean Platelet Volume 6.8 FL (6.5-10.1) Neutrophils (%) (Auto) 62.1 % (45.0-75.0) Lymphocytes (%) (Auto) 24.7 % (20.0-45.0) Monocytes (%) (Auto) 9.3 % (1.0-10.0) Eosinophils (%) (Auto) 3.5 % (0.0-3.0) H Basophils (%) (Auto) 0.5 % (0.0-2.0) Sodium Level 136 MMOL/L (136-145) Potassium Level 4.6 MMOL/L (3.5-5.1) Chloride Level 104 MMOL/L (98-107) Carbon Dioxide Level 22 MMOL/L (21-32) Anion Gap 10 mmol/L (5-15) Blood Urea Nitrogen 34 mg/dL (7-18) H Creatinine 2.1 MG/DL (0.55-1.30) H Estimat Glomerular Filtration Rate 30.3 mL/min (>60) Glucose Level 240 MG/DL (74-106) H Calcium Level 7.8 MG/DL (8.5-10.1) L Phosphorus Level 2.7 MG/DL (2.5-4.9) Magnesium Level 2.1 MG/DL (1.8-2.4) Total Bilirubin 0.4 MG/DL (0.2-1.0) Direct Bilirubin 0.1 MG/DL (0.0-0.3) Aspartate Amino Transf (AST/SGOT) 23 U/L (15-37) Alanine Aminotransferase (ALT/SGPT) 13 U/L (12-78) Alkaline Phosphatase 86 U/L (46-116) Total Protein 6.2 G/DL (6.4-8.2) L Albumin 2.6 G/DL (3.4-5.0) L Test 03/01/20 10:20 03/01/20 11:33 Troponin I 0.000 ng/mL (0.000-0.056) POC Whole Blood Glucose Pending Microbiology Date/Time Source Procedure Growth Status 02/27/20 18:13 Knee Right Gram Stain - Final Resulted 02/27/20 18:13 Aerobic Culture - Final Staphylococcus Sp Coag Neg Resulted 02/27/20 18:13 Knee Right Anaerobic Culture - Preliminary NO ANAEROBES ISOLATED Resulted 02/27/20 18:10 Knee Right Gram Stain - Final Resulted 02/27/20 18:10 Knee Right Aerobic Culture - Preliminary NO GROWTH AFTER 72 HOURS Resulted 02/27/20 18:10 Knee Right Anaerobic Culture - Preliminary NO GROWTH AFTER 72 HOURS Resulted Intake and Output 02/29/20 03/01/20 19:00 07:00 Intake Total 850 ml 720 ml Output Total 900 ml 1300 ml Balance -50 ml -580 ml Intake Oral 800 ml 120 ml IV Total 50 ml 600 ml Output Urine Total 900 ml 1300 ml # Bowel Movements 1 1 Objective PHYSICAL EXAMINATION: GENERAL: The patient is a well-developed and well-nourished male, in no apparent distress. HEENT: Eyes, pupils are equal and responsive to light and accommodation. Extraocular movements are intact. NECK: Supple without lymphadenopathy. CHEST: Lungs are clear to auscultation bilaterally without wheezes or rales. CARDIOVASCULAR: Regular rate. S1, S2 normal without murmurs, rubs, or gallops. ABDOMEN: Soft, nontender, and nondistended. Positive bowel sounds. No evidence of hepatosplenomegaly. Currently, no rebound or guarding noted. EXTREMITIES: Negative for clubbing, cyanosis, or edema. RECTAL/GENITAL: Not performed. NEUROLOGIC: Cranial nerves II through XII are grossly intact without focal deficits. Motor strength is 5/5 bilaterally. Deep tendon reflexes are 2+ plantar. Assessment/Plan Assessment/Plan ASSESSMENT: This is an 84-year-old male with: 1. Right knee pain. 2. Diabetes type 2. 3. Hypertension. 4. Asthma. 5. Benign prostatic hypertrophy. 6. Hypercholesteremia. 7. Cerebrovascular disease, status post cerebrovascular accident. 8. Wound dehiscence right knee surgery TREATMENT: 1. Right knee pain. An Orthopedic consultation has been obtained with Dr. Ananth Padilla. The patient is scheduled for right total knee replacement on 02/27/2020. Follow recommendation of Orthopedic Surgery. 2. Diabetes type 2. NovoLog sliding scale has been instituted. Discontinue metformin as the patient is NPO for surgery. 3. Cerebrovascular disease. The patient is status post cerebrovascular accident. 4. Asthma. Continue Singulair as above. Albuterol 2.5 mg nebulized q.4 hours p.r.n. wheezing. 5. Benign prostatic hypertrophy. Continue Flomax as above. 6. Hypertension. Continue Coreg as above. 7. Hypercholesterolemia. Continue atorvastatin as above. 8. S/P complex closure in OR on 02/27/20 9. Discharge planning: [facility] Real Moeller MD Mar 01, 2020 15:55
[2020-03-01 16:00] VITALS: BP 149/67
[2020-03-01] MEDS: Montelukast 10mg tablet ORAL SCH (16:37)
--- NOTE | 2020-03-01 19:51 | Pulmonology Progress Note ---
Subjective ROS Limited/Unobtainable: No Constitutional: Reports: no symptoms HEENT: Repors: no symptoms Respiratory: Reports: no symptoms Allergies: Coded Allergies: No Known Allergies (Unverified , 02/27/20) Objective Last 24 Hour Vital Signs Date Time Temp Pulse Resp B/P (MAP) Pulse Ox O2 Delivery O2 Flow Rate FiO2 03/01/20 16:00 98.2 64 18 149/67 (94) 95 03/01/20 12:00 97.7 63 18 161/70 (100) 99 03/01/20 10:40 161/73 03/01/20 09:49 179/79 03/01/20 09:00 Nasal Cannula 2.0 03/01/20 08:10 75 122/68 03/01/20 08:00 99.8 75 18 122/68 (86) 95 03/01/20 04:00 98.5 80 18 140/62 (88) 98 03/01/20 00:00 98.6 82 18 137/68 (91) 97 02/29/20 21:07 82 120/62 02/29/20 21:00 Room Air 02/29/20 20:00 99.0 82 18 120/62 (81) 94 Intake and Output 02/29/20 03/01/20 19:00 07:00 Intake Total 850 ml 720 ml Output Total 900 ml 1300 ml Balance -50 ml -580 ml Intake Oral 800 ml 120 ml IV Total 50 ml 600 ml Output Urine Total 900 ml 1300 ml # Bowel Movements 1 1 General Appearance: WD/WN HEENT: normocephalic, atraumatic Respiratory: chest wall non-tender, lungs clear Cardiovascular: normal peripheral pulses, normal rate Abdomen: normal bowel sounds, soft, non tender Genitourinary: normal external genitalia Extremities: no cyanosis Skin: no rash 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 Laboratory Tests 02/29/20 21:18: POC Whole Blood Glucose [Pending] 03/01/20 03:50: White Blood Count 11.0H, Red Blood Count 2.94L, Hemoglobin 9.0L, Hematocrit 28.8L, Mean Corpuscular Volume 98, Mean Corpuscular Hemoglobin 30.7, Mean Corpuscular Hemoglobin Concent 31.3L, Red Cell Distribution Width 13.0, Platelet Count 274, Mean Platelet Volume 6.8, Neutrophils (%) (Auto) 62.1, Lymphocytes (%) (Auto) 24.7, Monocytes (%) (Auto) 9.3, Eosinophils (%) (Auto) 3.5H, Basophils (%) (Auto) 0.5, Sodium Level 136, Potassium Level 4.6, Chloride Level 104, Carbon Dioxide Level 22, Anion Gap 10, Blood Urea Nitrogen 34H, Creatinine 2.1H, Estimat Glomerular Filtration Rate 30.3, Glucose Level 240H, Calcium Level 7.8L, Phosphorus Level 2.7, Magnesium Level 2.1, Total Bilirubin 0.4, Direct Bilirubin 0.1, Aspartate Amino Transf (AST/SGOT) 23, Alanine Aminotransferase (ALT/SGPT) 13, Alkaline Phosphatase 86, Total Protein 6.2L, Albumin 2.6L 03/01/20 05:15: POC Whole Blood Glucose 255H 03/01/20 10:20: Troponin I 0.000 03/01/20 11:33: POC Whole Blood Glucose [Pending] 03/01/20 16:36: POC Whole Blood Glucose 245H Current Medications Medications (Trade) Dose Ordered Sig/Tiffany Route PRN Reason Start Time Stop Time Status Last Admin Dose Admin Acetaminophen (Tylenol) 1,000 mg Q8HR ORAL 02/27/20 22:00 03/28/20 21:59 03/01/20 14:15 Aspirin (ASA) 81 mg Q12HR ORAL 02/28/20 09:00 04/13/20 08:59 03/01/20 08:11 Atorvastatin Calcium (Lipitor) 80 mg BEDTIME ORAL 02/27/20 21:00 05/27/20 20:59 02/29/20 21:09 Carvedilol (Coreg) 12.5 mg EVERY 12 HOURS ORAL 02/27/20 21:00 03/28/20 08:59 03/01/20 08:10 Chlorhexidine Gluconate (Nan-Hex 2%) 1 applic DAILY@1999 TOPIC 02/28/20 20:00 05/28/20 19:59 02/29/20 19:42 Clonidine HCl (Catapres Tab) 0.1 mg Q4H PRN ORAL SBP > 160mmHg 02/27/20 20:45 05/27/20 08:44 03/01/20 09:49 Dextrose (Dextrose 50%) 25 ml Q30M PRN IV Hypoglycemia 02/27/20 18:15 05/27/20 06:44 Dextrose (Dextrose 50%) 50 ml Q30M PRN IV Hypoglycemia 02/27/20 20:00 05/27/20 19:59 Diphenhydramine HCl (Benadryl) 25 mg Q8H PRN IVP Itching 02/28/20 12:30 03/29/20 12:29 02/28/20 13:23 Docusate Sodium (Colace) 100 mg THREE TIMES A DAY ORAL 02/28/20 09:00 03/29/20 08:59 03/01/20 17:10 Epoetin Kyle (Epoetin Kyle-EPBX(NON ESRD)) 10,000 unit MON- SUBQ 03/02/20 21:00 05/31/20 20:59 Gabapentin (Neurontin) 100 mg Q8HR ORAL 02/27/20 22:00 03/28/20 21:59 03/01/20 14:15 Heparin Sodium (Porcine) (Heparin 5000 units/ml) 5,000 units EVERY 8 HOURS SUBQ 02/28/20 06:00 04/13/20 05:59 03/01/20 14:16 Insulin Aspart (NovoLOG) BEFORE MEALS AND HS SUBQ 02/27/20 21:00 05/27/20 11:29 03/01/20 16:39 Isosorbide Mononitrate (Imdur) 30 mg DAILY ORAL 03/01/20 10:15 03/31/20 10:14 03/01/20 10:40 Linezolid 300 ml @ 300 mls/hr EVERY 12 HOURS IVPB 02/29/20 21:00 03/07/20 20:59 03/01/20 08:10 Magnesium Hydroxide (Mom) 30 ml DAILYPRN PRN ORAL Constipation 02/27/20 21:00 03/28/20 20:59 Montelukast Sodium (Singulair) 10 mg DAILY@1600 ORAL 02/28/20 16:00 05/27/20 15:59 03/01/20 16:37 Morphine Sulfate (Morphine Sulfate) 1 mg Q4H PRN IVP Moderate Breakthru Pain (5-7) 02/27/20 20:30 03/05/20 16:29 Morphine Sulfate (Morphine Sulfate) 2 mg Q4H PRN IVP Severe Breakthru Pain (>7) 02/27/20 20:15 03/05/20 10:29 02/29/20 19:43 Nateglinide (Starlix) 60 mg TIAC ORAL 03/01/20 11:30 03/31/20 11:29 03/01/20 16:37 Ondansetron HCl (Zofran) 4 mg Q6H PRN IVP Nausea & Vomiting 02/27/20 20:00 03/28/20 19:59 Oxycodone HCl (OxyCONTIN) 20 mg EVERY 12 HOURS ORAL 02/27/20 21:00 03/05/20 20:59 03/01/20 08:11 Oxycodone HCl (Roxicodone) 5 mg Q1H PRN ORAL Mild breakthrough pain 2-4 02/27/20 20:15 03/05/20 16:29 03/01/20 17:11 Pantoprazole (Protonix) 40 mg Q12HR ORAL 02/27/20 21:00 03/28/20 13:44 03/01/20 08:11 Tamsulosin HCl (Flomax) 0.4 mg BID ORAL 02/28/20 09:00 03/28/20 20:59 03/01/20 17:11 Temazepam (RestoriL) 7.5 mg HSPRN PRN ORAL Insomnia 02/28/20 21:00 03/05/20 20:59 Assessment/Plan Problems: (1) Postoperative pain of knee (2) Postoperative wound dehiscence (3) Diabetes mellitus (4) History of asthma (5) BPH (benign prostatic hyperplasia) Assessment/Plan no new complains doing better sliding scale pain management respiratory treatment dvt prophylaxis\ dc planning Steven Ngo MD Mar 01, 2020 19:51
--- NOTE | 2020-03-01 19:59 | NUR ---
HAND-OFF: Report given to Tim RN.
[2020-03-01 20:00] VITALS: BP 106/70
--- NOTE | 2020-03-01 20:00 | NUR ---
NURSE NOTES: Received report from Andre KRAFT.The patient is alert and oriented x4 and does not seen to be in any acute distress at this time. The Resp is even and unlabored and the bilateral lung sounds are clear on auscultation.The right knee dressing is clean and intact. The patient has a PICC line on LAURIE which is patent and asymptomatic.Bed lowest position. Call light within reach. Will continue to monitor.
[2020-03-01] MEDS: Atorvastatin 80mg tab ORAL SCH (21:22)
[2020-03-01] MEDS: Dyna-Hex 2% Top Sol 2oz TOPIC SCH (21:32)
[2020-03-02] VITALS (7 sets, daily range): BP systolic 142–160; BP diastolic 64–70
[2020-03-02] MEDS: Morphine Sulfate 2mg/ml Inj(IV/IM USE ONLY) IVP PRN (04:27)
[2020-03-02] MEDS: Acetaminophen 500mg (ES) tab ORAL SCH ×2 (06:12→14:46)
[2020-03-02] MEDS: Heparin 5000 units/ml inj SUBQ SCH ×2 (06:13→14:47)
[2020-03-02] MEDS: Nateglinide 60mg tab ORAL SCH ×2 (06:14→11:57)
[2020-03-02] MEDS: NovoLOG Insulin Flexpen SUBQ SCH ×3 (06:15→16:33)
[2020-03-02 07:23] LABS: BASOPHILS % (AUTO) 0.7 % (0.0-2.0); EOSINOPHILS % (AUTO) 3.5 % (0.0-3.0); HEMATOCRIT 27.5 % (42.0-52.0); HEMOGLOBIN 8.7 G/DL (14.2-18.0); LYMPHOCYTES % (AUTO) 21.1 % (20.0-45.0); MEAN CORPUSCULAR VOLUME 96 FL (80-99); MONOCYTES % (AUTO) 9.9 % (1.0-10.0); NEUTROPHILS % (AUTO) 64.8 % (45.0-75.0); PLATELET COUNT 289 K/UL (150-450); RED BLOOD COUNT 2.86 M/UL (4.70-6.10); RED CELL DISTRIBUTION WIDTH 13.1 % (11.6-14.8)
[2020-03-02 07:24] LABS: ANION GAP 8 mmol/L (5-15); BLOOD UREA NITROGEN 27 mg/dL (7-18); CALCIUM 8.2 MG/DL (8.5-10.1); CARBON DIOXIDE 24 MMOL/L (21-32); CHLORIDE 105 MMOL/L (98-107); CREATININE 1.8 MG/DL (0.55-1.30); POTASSIUM 4.4 MMOL/L (3.5-5.1); SODIUM 137 MMOL/L (136-145)
--- NOTE | 2020-03-02 07:25 | NUR ---
HAND-OFF: Report given to SWAPNIL Berg.
--- NOTE | 2020-03-02 08:00 | NUR ---
NURSE NOTES: Received repot from Booker RN, Patient a/a/o x4 laying in bed with no signs of distress or other issues at this time. no skin issues notes at this time except for surgical area s/p TKA on the right leg with a dressing of 4x4 and Tegaderm. call light within reach, bed in lowest position. side rales up x2. I will f/u as needed.
[2020-03-02] MEDS: Tamsulosin 0.4mg cap ORAL SCH ×2 (08:20→17:22)
[2020-03-02] MEDS: Docusate 100mg cap ORAL SCH ×3 (08:20→17:22)
[2020-03-02] MEDS: Imdur 30mg tab ORAL SCH (08:20)
[2020-03-02] MEDS: Carvedilol 12.5mg tab ORAL SCH (08:21)
[2020-03-02] MEDS: Aspirin Baby 81mg ORAL SCH (08:21)
[2020-03-02] MEDS: oxyCONTIN 20mg tab ORAL SCH (08:21)
--- NOTE | 2020-03-02 09:36 | NUR ---
*-*DISCHARGE PLANNING*-* PAT[facility] P: [phone] S[facility], WHO STATED WILL ACCEPTED PATIENT, BUT IS UNABLE TO GIVE ROOM NUMBER UNTIL PATIENT IS CLEARED BY THE DOCTOR TO BE DISCHARGED TO [facility].
--- NOTE | 2020-03-02 12:49 | Nephrology Progress Note ---
Assessment/Plan Problem List: (1) Renal failure (ARF), acute on chronic (2) Diabetes mellitus (3) BPH (benign prostatic hyperplasia) (4) History of asthma (5) HTN (hypertension) Assessment Acute on chronic renal failure Diabetes mellitus [id number] History of asthma BPH Postoperative right knee pain Anemia Hypertension Plan March 02: Creatinine down to 1.8. Stable from renal standpoint of view. Continue per consultants. Increase Starlix dose to 120 mg 3 times a day March 01: Orthopedic procedure February 26. Creatinine down to 2.1. DC IV fluid. DC Sosa. Start Starlix for diabetes. Troponin I pending. Discussed with RN. February 28: Orthopedic procedure February 26. Serum creatinine 2.3 unchanged. Blood pressure blood sugar within acceptable range. EPO started for anemia. February 27: Patient had orthopedic procedure on her right knee yesterday. Renal parameters appears to be stable. Continue to monitor blood pressure and blood sugar. Kidney ultrasound results reviewed. 1 dose of Venofer for low iron given. Continue to avoid nephrotoxic's. Sosa catheter One half normal saline 75 cc an hour Keep blood sugar in check Anemia work-up 2D echocardiogram Hold metformin Pain medication Avoid nephrotoxic's Monitor renal parameters Subjective ROS Limited/Unobtainable: No Constitutional: Reports: malaise Objective Objective Last 24 Hour Vital Signs Date Time Temp Pulse Resp B/P (MAP) Pulse Ox O2 Delivery O2 Flow Rate FiO2 03/02/20 09:30 160/70 03/02/20 09:00 Room Air 03/02/20 08:51 98.6 03/02/20 08:21 66 142/64 03/02/20 08:20 142/64 03/02/20 08:00 98.4 66 16 142/64 (90) 96 03/02/20 04:00 98.6 66 17 150/66 (94) 96 03/02/20 00:00 99.1 66 20 148/67 (94) 96 03/01/20 21:22 64 120/70 03/01/20 21:00 Room Air 03/01/20 20:00 97.7 64 18 106/70 (82) 99 03/01/20 16:00 98.2 64 18 149/67 (94) 95 Intake and Output 03/01/20 03/02/20 19:00 07:00 Intake Total 1200 ml 710 ml Output Total 840 ml 1300 ml Balance 360 ml -590 ml Intake Oral 1200 ml 710 ml Output Urine Total 840 ml 1300 ml # Voids 3 # Bowel Movements 1 1 Current Medications Medications (Trade) Dose Ordered Sig/Tiffany Route PRN Reason Start Time Stop Time Status Last Admin Dose Admin Acetaminophen (Tylenol) 1,000 mg Q8HR ORAL 02/27/20 22:00 03/28/20 21:59 03/02/20 06:12 Aspirin (ASA) 81 mg Q12HR ORAL 02/28/20 09:00 04/13/20 08:59 03/02/20 08:21 Atorvastatin Calcium (Lipitor) 80 mg BEDTIME ORAL 02/27/20 21:00 05/27/20 20:59 03/01/20 21:22 Carvedilol (Coreg) 12.5 mg EVERY 12 HOURS ORAL 02/27/20 21:00 03/28/20 08:59 03/02/20 08:21 Chlorhexidine Gluconate (Nan-Hex 2%) 1 applic DAILY@1999 TOPIC 02/28/20 20:00 05/28/20 19:59 03/01/20 21:32 Clonidine HCl (Catapres Tab) 0.1 mg Q4H PRN ORAL SBP > 160mmHg 02/27/20 20:45 05/27/20 08:44 03/02/20 09:30 Dextrose (Dextrose 50%) 25 ml Q30M PRN IV Hypoglycemia 02/27/20 18:15 05/27/20 06:44 Dextrose (Dextrose 50%) 50 ml Q30M PRN IV Hypoglycemia 02/27/20 20:00 05/27/20 19:59 Diphenhydramine HCl (Benadryl) 25 mg Q8H PRN IVP Itching 02/28/20 12:30 03/29/20 12:29 02/28/20 13:23 Docusate Sodium (Colace) 100 mg THREE TIMES A DAY ORAL 02/28/20 09:00 03/29/20 08:59 03/02/20 11:57 Epoetin Kyle (Epoetin Kyle-EPBX(NON ESRD)) 10,000 unit MON-MON-MON SUBQ 03/02/20 21:00 05/31/20 20:59 Gabapentin (Neurontin) 100 mg Q8HR ORAL 02/27/20 22:00 03/28/20 21:59 03/02/20 06:11 Heparin Sodium (Porcine) (Heparin 5000 units/ml) 5,000 units EVERY 8 HOURS SUBQ 02/28/20 06:00 04/13/20 05:59 03/02/20 06:13 Insulin Aspart (NovoLOG) BEFORE MEALS AND HS SUBQ 02/27/20 21:00 05/27/20 11:29 03/02/20 11:57 Isosorbide Mononitrate (Imdur) 30 mg DAILY ORAL 03/01/20 10:15 03/31/20 10:14 03/02/20 08:20 Linezolid 300 ml @ 300 mls/hr EVERY 12 HOURS IVPB 02/29/20 21:00 03/07/20 20:59 03/02/20 08:22 Magnesium Hydroxide (Mom) 30 ml DAILYPRN PRN ORAL Constipation 02/27/20 21:00 03/28/20 20:59 Montelukast Sodium (Singulair) 10 mg DAILY@1600 ORAL 02/28/20 16:00 05/27/20 15:59 03/01/20 16:37 Morphine Sulfate (Morphine Sulfate) 1 mg Q4H PRN IVP Moderate Breakthru Pain (5-7) 02/27/20 20:30 03/05/20 16:29 Morphine Sulfate (Morphine Sulfate) 2 mg Q4H PRN IVP Severe Breakthru Pain (>7) 02/27/20 20:15 03/05/20 10:29 03/02/20 04:27 Nateglinide (Starlix) 60 mg TIAC ORAL 03/01/20 11:30 03/31/20 11:29 03/02/20 11:57 Ondansetron HCl (Zofran) 4 mg Q6H PRN IVP Nausea & Vomiting 02/27/20 20:00 03/28/20 19:59 03/02/20 04:32 Oxycodone HCl (OxyCONTIN) 20 mg EVERY 12 HOURS ORAL 02/27/20 21:00 03/05/20 20:59 03/02/20 08:21 Oxycodone HCl (Roxicodone) 5 mg Q1H PRN ORAL Mild breakthrough pain 2-4 02/27/20 20:15 03/05/20 16:29 03/01/20 17:11 Pantoprazole (Protonix) 40 mg Q12HR ORAL 02/27/20 21:00 03/28/20 13:44 03/02/20 08:20 Tamsulosin HCl (Flomax) 0.4 mg BID ORAL 02/28/20 09:00 03/28/20 20:59 03/02/20 08:20 Temazepam (RestoriL) 7.5 mg HSPRN PRN ORAL Insomnia 02/28/20 21:00 03/05/20 20:59 Laboratory Tests 03/01/20 16:36: POC Whole Blood Glucose 245H 03/01/20 21:19: POC Whole Blood Glucose 184H 03/02/20 05:25: White Blood Count 10.0, Red Blood Count 2.86L, Hemoglobin 8.7L, Hematocrit 27.5L , Mean Corpuscular Volume 96, Mean Corpuscular Hemoglobin 30.5, Mean Corpuscular Hemoglobin Concent 31.7L, Red Cell Distribution Width 13.1, Platelet Count 289, Mean Platelet Volume 7.0, Neutrophils (%) (Auto) 64.8, Lymphocytes (%) (Auto) 21.1, Monocytes (%) (Auto) 9.9, Eosinophils (%) (Auto) 3.5H, Basophils (%) (Auto) 0.7, Sodium Level 137, Potassium Level 4.4, Chloride Level 105, Carbon Dioxide Level 24, Anion Gap 8, Blood Urea Nitrogen 27H, Creatinine 1.8H, Estimat Glomerular Filtration Rate 36.2, Glucose Level 166H, Calcium Level 8.2L 03/02/20 06:09: POC Whole Blood Glucose 156H 03/02/20 11:51: POC Whole Blood Glucose 252H Height (Feet): 5 Height (Inches): 5.00 Weight (Pounds): 185 General Appearance: no apparent distress Cardiovascular: normal rate Respiratory/Chest: decreased breath sounds Abdomen: soft Jer Messer MD Mar 02, 2020 12:49
--- NOTE | 2020-03-02 15:44 | NUR ---
*-*DISCHARGE PLANNED*-* PATIENT HAS BEEN ACCEPTED AND WILL BE DISCHARGED TO: [facility] P: [phone] FOR NURSE TO NURSE REPORT ROOM# 201.SKILLED [facility] SET FOR 5PM S/W JENNIFER [id number].
[2020-03-02] MEDS ORDERED: Nateglinide 60mg tab ORAL SCH (16:30)
[2020-03-02] MEDS: Montelukast 10mg tablet ORAL SCH (16:33)
--- NOTE | 2020-03-02 19:12 | Internal Med Progress Note ---
Subjective Date of Service: Mar 02, 2020 Physician Name Real Moeller Attending Physician Vik Bojorquez MD Allergies: Coded Allergies: No Known Allergies (Unverified , 02/27/20) ROS Limited/Unobtainable: No Constitutional: Reports: no symptoms HEENT: Reports: no symptoms Cardiovascular: Reports: no symptoms Respiratory: Reports: no symptoms Gastrointestinal/Abdominal: Reports: no symptoms Genitourinary: Reports: no symptoms Neurologic/Psychiatric: Reports: no symptoms Subjective 84 YO M admitted with wound dehiscence right knee. S/P complex closure in OR . Cover for Int Med Dr Bojorquez Objective Last Vital Signs Date Time Temp Pulse Resp B/P (MAP) Pulse Ox O2 Delivery O2 Flow Rate FiO2 03/02/20 16:00 97.5 61 18 145/65 (91) 96 03/02/20 09:00 Room Air 03/01/20 09:00 2.0 Laboratory Tests Test 03/01/20 21:19 03/02/20 05:25 03/02/20 06:09 03/02/20 11:51 POC Whole Blood Glucose 184 MG/DL (74-106) H 156 MG/DL (74-106) H 252 MG/DL (74-106) H White Blood Count 10.0 K/UL (4.8-10.8) Red Blood Count 2.86 M/UL (4.70-6.10) L Hemoglobin 8.7 G/DL (14.2-18.0) L Hematocrit 27.5 % (42.0-52.0) L Mean Corpuscular Volume 96 FL (80-99) Mean Corpuscular Hemoglobin 30.5 PG (27.0-31.0) Mean Corpuscular Hemoglobin Concent 31.7 G/DL (32.0-36.0) L Red Cell Distribution Width 13.1 % (11.6-14.8) Platelet Count 289 K/UL (150-450) Mean Platelet Volume 7.0 FL (6.5-10.1) Neutrophils (%) (Auto) 64.8 % (45.0-75.0) Lymphocytes (%) (Auto) 21.1 % (20.0-45.0) Monocytes (%) (Auto) 9.9 % (1.0-10.0) Eosinophils (%) (Auto) 3.5 % (0.0-3.0) H Basophils (%) (Auto) 0.7 % (0.0-2.0) Sodium Level 137 MMOL/L (136-145) Potassium Level 4.4 MMOL/L (3.5-5.1) Chloride Level 105 MMOL/L (98-107) Carbon Dioxide Level 24 MMOL/L (21-32) Anion Gap 8 mmol/L (5-15) Blood Urea Nitrogen 27 mg/dL (7-18) H Creatinine 1.8 MG/DL (0.55-1.30) H Estimat Glomerular Filtration Rate 36.2 mL/min (>60) Glucose Level 166 MG/DL (74-106) H Calcium Level 8.2 MG/DL (8.5-10.1) L Test 03/02/20 16:31 POC Whole Blood Glucose 251 MG/DL (74-106) H Intake and Output 03/01/20 03/02/20 19:00 07:00 Intake Total 1200 ml 710 ml Output Total 840 ml 1300 ml Balance 360 ml -590 ml Intake Oral 1200 ml 710 ml Output Urine Total 840 ml 1300 ml # Voids 3 # Bowel Movements 1 1 Objective PHYSICAL EXAMINATION: GENERAL: The patient is a well-developed and well-nourished male, in no apparent distress. HEENT: Eyes, pupils are equal and responsive to light and accommodation. Extraocular movements are intact. NECK: Supple without lymphadenopathy. CHEST: Lungs are clear to auscultation bilaterally without wheezes or rales. CARDIOVASCULAR: Regular rate. S1, S2 normal without murmurs, rubs, or gallops. ABDOMEN: Soft, nontender, and nondistended. Positive bowel sounds. No evidence of hepatosplenomegaly. Currently, no rebound or guarding noted. EXTREMITIES: Negative for clubbing, cyanosis, or edema. RECTAL/GENITAL: Not performed. NEUROLOGIC: Cranial nerves II through XII are grossly intact without focal deficits. Motor strength is 5/5 bilaterally. Deep tendon reflexes are 2+ plantar. Assessment/Plan Assessment/Plan ASSESSMENT: This is an 84-year-old male with: 1. Right knee pain. 2. Diabetes type 2. 3. Hypertension. 4. Asthma. 5. Benign prostatic hypertrophy. 6. Hypercholesteremia. 7. Cerebrovascular disease, status post cerebrovascular accident. 8. Wound dehiscence right knee surgery TREATMENT: 1. Right knee pain. An Orthopedic consultation has been obtained with Dr. Ananth Padilla. The patient is scheduled for right total knee replacement on 02/27/2020. Follow recommendation of Orthopedic Surgery. 2. Diabetes type 2. NovoLog sliding scale has been instituted. Discontinue metformin as the patient is NPO for surgery. 3. Cerebrovascular disease. The patient is status post cerebrovascular accident. 4. Asthma. Continue Singulair as above. Albuterol 2.5 mg nebulized q.4 hours p.r.n. wheezing. 5. Benign prostatic hypertrophy. Continue Flomax as above. 6. Hypertension. Continue Coreg as above. 7. Hypercholesterolemia. Continue atorvastatin as above. 8. S/P complex closure in OR on 02/27/20 9. Discharge to [facility] today Real Moeller MD Mar 02, 2020 19:12
--- NOTE | 2020-03-02 19:34 | NUR ---
NURSE NOTES: Received order to transfer patient to [facility]. called to give report: [phone](P) report given to Senia KRAFT. she is also aware that Dr. Spence is in the case to manage IV abx. Also given report to ambulance crew. PICC line kept for continuation of IV abx. pt left the floor with no signs of distress or other issues at this time.
[2020-03-02] MEDS ORDERED: Epoetin Alfa-EPBX (NON ESRD)10,000 unit/ml vial SUBQ SCH (21:00)
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
== END 2020-03-02 18:56 | disposition short-term general hospital (02) | DRG 908 ==
LOC: 2E 02-27 01:39 → 3E 02-27 17:59
PROC: 0SUV09Z Supplement Right Knee Joint, Tibial Surface with Liner, Open Approach (ICD-10-PCS; principal; 2020-02-27 16:00)
PROC: 0S9C0ZZ Drainage of Right Knee Joint, Open Approach (ICD-10-PCS; principal; 2020-02-27 16:00)
PROC: 0SBC0ZZ Excision of Right Knee Joint, Open Approach (ICD-10-PCS; principal; 2020-02-27 16:00)
PROC: 0SPC09Z Removal of Liner from Right Knee Joint, Open Approach (ICD-10-PCS; principal; 2020-02-27 16:00)
PROC: 02HV33Z Insertion of Infusion Device into Superior Vena Cava, Percutaneous Approach (ICD-10-PCS; 2020-02-28)
PROC: 3E03328 Introduction of Oxazolidinones into Peripheral Vein, Percutaneous Approach (ICD-10-PCS; 2020-02-29)
DX: T81.31XA Disruption of external operation (surgical) wound, not elsewhere classified, initial encounter (principal); N17.9 Acute kidney failure, unspecified; E46 Unspecified protein-calorie malnutrition; E11.65 Type 2 diabetes mellitus with hyperglycemia; E11.22 Type 2 diabetes mellitus with diabetic chronic kidney disease; J45.909 Unspecified asthma, uncomplicated; E78.00 Pure hypercholesterolemia, unspecified; Z86.73 Personal history of transient ischemic attack (TIA), and cerebral infarction without residual deficits; N40.1 Benign prostatic hyperplasia with lower urinary tract symptoms; Z96.651 Presence of right artificial knee joint; W19.XXXA Unspecified fall, initial encounter; Y92.009 Unspecified place in unspecified non-institutional (private) residence as the place of occurrence of the external cause; G89.18 Other acute postprocedural pain; N18.9 Chronic kidney disease, unspecified; I12.9 Hypertensive chronic kidney disease with stage 1 through stage 4 chronic kidney disease, or unspecified chronic kidney disease; Z79.84 Long term (current) use of oral hypoglycemic drugs; D64.9 Anemia, unspecified
CPT/HCPCS: 36415; 36569; 71045; 76770; 76937; 80048; 80053; 80061; 80076; 81001; 82043; 82550; 82607; 82728; 82746; 82962; 82977; 83036; 83540; 83550; 83735; 83935; 84100; 84300; 84443; 84484; 84550; 85025; 85610; 85651; 85730; 86140; 87070; 87075; 87081; 87205; 89050; 93005; 93306; 94003; 94150; J1815; J2180; J2250; J2405; J7030; U0002